=== PATIENT | male | born 1935 | race Caucasian/White ===

== ENCOUNTER 2017-02-12 20:57 | Observation (INO) ==
[2017-02-12] MEDS ORDERED: KETOROLAC 30 MG/ML INJECTION IVP ONE ×2 (21:11→22:55)
[2017-02-12] MEDS ORDERED: NS 1,000 ML IV ONE (21:11)
[2017-02-12] MEDS: SALINE FLUSH 10ml SYRINGE IVF PRN (21:13)
--- NOTE | 2017-02-12 21:14 | Emergency Department Report ---
Fall HPI - General Chief Complaint: Fall Stated Complaint: Fall Time Seen by Provider: 02/12/17 21:07 Source: patient, EMS Mode of arrival: EMS Limitations: no limitations - History of Present Illness HPI Narrative: Patient was walking back to had a building in the dark, thinking that he was on ground when he suddenly fell. Poorly the patient was on a small platform and fell approximately 3 feet hardpacked dirt, landing on his right hip, his right side, and striking his right head/forehead on a metallic drain cover. Patient was having significant right hip pain when he tried to get up, so he notify EMS that he would need assistance. On scene the patient was feeling much better, was assisted to his feet, and when he weight on the right hip, his pain increased dramatically, and the patient had a rapid syncopal episode. Patient has had syncope in the past, both with hypovolemia as well as painful stimuli, but he has been checked out several times by physicians and found no specific pathology for his syncope. Patient declined IV or medications, and came in code green with EMS. Patient had no neck pain or tenderness, no chest or abdominal complaints, no pelvic discomfort on exam, and only mild right sided hip pain on gasket supervisor examined the seen. Review of Systems All systems: reviewed and negative except as stated PFSH Patient Stated Medical History Cataracts Yes Glaucoma Yes Hypertension Yes Diabetes Mellitus Type 2 Yes Hx Kidney Stones Yes Sepsis Yes Hypertension Type 2 diabetes [id number] Syncope Surgical History: Cholecystectomy - Social History Smoking status: Never smoker Substance use type: does not use Alcohol intake frequency: does not drink Physical Exam - Limitations Limitations: no limitations - General General appearance: alert - Normal Exams: Eyes:: Pupils are PERRLA w/ EOMI, No scleral icterus, irritation, or foreign bodies noted ENMT:: No facial trauma, nasal exudates, pharyngeal erythema, or exudates are noted Neck:: Full range of motion, without adenopathy, JVD, bruits or thyromegaly Chest/Respirations:: Clear all stroud, with good airflow, and symmetry bilaterally Cardiovascular:: Regular rate and rhythm, without murmur or gallop, Pulses 2+ all extremities, capillary refill, <2 seconds all extremities Abdomen:: Bowel sounds positive, soft, non-tender, non-distended, no hepatosplenomegaly, masses or bruits noted Lymphatic:: No lymphadenopathy, or lymphedema noted Integumentary:: No rashes, hives, or bruising noted, hair and nails, without abnormality Neurological:: Patient is alert, and oriented, cranial nerves, motor/sensory/ cerebellar, exams w/o gross deficits, to observation Psychiatric:: Patient exhibits, appropriate attention, emotion and affect - Head Head exam: other ( has a small scalp hematoma to the right frontotemporal area, minimal tenderness, no surrounding tenderness.) - Extremities Exam Extremities exam: Present: normal inspection, tenderness (decreased range of motion of the right hip secondary to pain moderate posterior lateral tenderness to the right hip), normal capillary refill, pedal edema. Absent: full ROM, joint swelling, calf tenderness Course Vital Signs Temperature 98.1 F 02/12/17 20:57 Respiratory Rate 20 02/12/17 20:57 Blood Pressure 134/59 02/12/17 20:57 Pulse Oximetry 94 02/12/17 20:57 Temperature 98.1 F 02/12/17 20:57 Pulse Rate 83 02/12/17 22:06 Respiratory Rate 20 02/12/17 22:06 Blood Pressure 156/83 H 02/12/17 22:06 Pulse Oximetry 94 02/12/17 20:57 Fall - MDM Narrative Medical decision making narrative: Patient given Toradol 30 mg IV, 1 L normal saline IV fluid bolus - CT head - normal, small vessel disease only, no fractures or bleeds Right hip/pelvis - normal/negative Disposition Clinical Impression: Multiple contusions Fall Qualifiers: Encounter type: initial encounter Qualified Code(s): W19.XXXA - Unspecified fall, initial encounter Syncope Qualifiers: Syncope type: unspecified Qualified Code(s): R55 - Syncope and collapse Disposition: Discharged Home, Self-Care Condition: Improved Instructions: Fall Prevention for Older Adults (ED) Additional Instructions: Take your routine medications Return to ER or see her primary doctor for any worsening in her condition Referrals: Darwin Radford II, MD [Family Provider] - - Seen By: physician
[2017-02-12] MEDS ORDERED: ORPHENADRINE 60 MG/2 ML INJECTION IV ONE (22:55)
[2017-02-12] MEDS ORDERED: SALINE FLUSH 10ml SYRINGE ONE (23:42)
[2017-02-12] MEDS ORDERED: NS 100 ML ONE (23:42)
[2017-02-12] MEDS ORDERED: IODIXANOL 320mg/ml 100ml INJECTION IV ONE (23:42)
[2017-02-13] MEDS ORDERED: HYDROMORPHONE 2 MG/ML INJECTION IVP ONE (00:42)
[2017-02-13] MEDS ORDERED: ONDANSETRON 4 MG/2 ML INJECTION IVP ONE (00:42)
[2017-02-13] MEDS ORDERED: ONDANSETRON 4 MG/2 ML INJECTION IVP PRN (01:29)
[2017-02-13] MEDS ORDERED: ACETAMINOPHEN 325 MG TABLET PO PRN (01:29)
[2017-02-13] MEDS ORDERED: SENNA + DOCUSATE TABLET PO PRN (01:29)
[2017-02-13] MEDS ORDERED: HYDROCODONE/APAP 5mg/325mg TABLET PO PRN (01:29)
[2017-02-13 01:40] VITALS: BMI 24.0
--- NOTE | 2017-02-13 01:43 | History & Physical Report ---
<Moncho Quinones I - Last Filed: 02/13/17 01:39> History of Present Illness Date: 02/13/17 Chief complaint: Fall, R hip pain HPI: Hema is a pleasant active 81-year-old male who presented to the emergency department per EMS after a fall. 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 He did apparently hit his head on a metal drainage grate. He denied loss of consciousness. is evaluation in the emergency department included an unremarkable CT of the head, and plain films of his hip were normal. He had significant pain with attempts at weightbearing however, in fact he had a vasovagal syncope. CT of the pelvis revealed a right pubic ramus fracture. He also developed hematuria in the emergency department. He is subsequently admitted for further evaluation and comanagement with orthopedic surgery. Review of Systems All systems PM: 10-point ROS was reviewed, no additional remarkable complaints except (Prior to the above described event, he was in his usual state of good health. He complains of some right shoulder pain with movement, the pain in his right hip and pelvis is resolved and occurs only with AROM.) - Constitutional Constitutional: Absent: fever(s), headache(s) [facility] Clinic Medical History Multiple contusions (Acute Medical) Fall (Acute Medical) Syncope (Acute Medical) Diabetes mellitus, well controlled with diet and weekly subcutaneous injection essential hypertension, well controlled Surgical History: Cholecystectomy Family History: his father lived to age 96 his mother from complications of a stroke several maternal uncles had coronary artery disease - Social History Smoking status: Former smoker (quit smoking over 25 years ago, he used to smoke pipes and cigars) Alcohol intake frequency: holidays/special occasions only Housing: house Household members: spouse ( she is wheelchair bound, he is her primary caregiver ) 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) Medications Home Medications Medication Instructions Recorded Confirmed Type Exenatide Microspheres [Bydureon 2 mg SQ 02/12/17 History Pen] Telmisartan [Micardis] 20 mg PO 02/12/17 History Allergies Allergy/AdvReac Type Severity Reaction Status Date / Time No Known Allergies Allergy Verified 02/12/17 22:34 Exam Vital Signs: Temperature 97.4 F 02/12/17 23:35 Pulse Rate 91 02/13/17 01:12 Respiratory Rate 14 02/13/17 01:12 Blood Pressure 137/62 02/13/17 01:12 Pulse Oximetry 97 02/13/17 01:12 - Constitutional Present: no acute distress, well nourished, well developed ( appears younger than stated age) - Routine HEENT Exam Head: Present: normocephalic, atraumatic ENT: Present: mucous membranes moist, dentition normal - Routine Neck Exam Present: supple, full ROM - Routine Respiratory Exam Present: CTA bilaterally. Absent: accessory muscle use, dyspnea, respiratory distress - Routine Cardiovascular Exam Present: RRR, S1, S2, no murmur - Routine Abdominal Exam Present: soft, non distended, non tender - Routine Extremities Exam Absent: cyanosis, clubbing, edema - Routine Skin Exam Present: intact. Absent: jaundice, rash - Routine Neurological Exam Present: alert, oriented X3, CN II-XII intact, normal speech - Routine Psychiatric Exam Present: normal affect, normal thought process, cooperative, good insight, good judgment - Additional findings Additional findings: examination performed using telemedicine equipment with the assistance of the bedside nurse Results - Labs CBC & Chem 7: 02/12/17 23:14 02/12/17 23:14 Assessment and Plan (1) Closed fracture of single pubic ramus of pelvis Current visit: Yes Status: Acute (2) Hypertension Current visit: Yes Status: Acute (3) Fall Current visit: Yes Status: Acute (4) Syncope Current visit: Yes Status: Acute (5) Diabetes mellitus Current visit: Yes Status: Acute Assessment and Plan: Hema is admitted in stable condition. the input and expertise of Dr. Nicholson are appreciated in the morning. Physical and occupational therapies have been ordered. We will give intravenous fluids overnight, and monitor the hematuria. If that does not clear, would have a low threshold for consideration for a urology consultation. We will continue his home antihypertensive regimen, and diabetic diet. When necessary pain and nausea medication ordered. Will provide further symptomatic supportive and diagnostic cares as the current workup, or changes in his clinical scenario, indicate. Plan of care was discussed with the patient at the time of my evaluation and he expressed understanding and desired to proceed. SCDs for DVT prophylaxis at this time, consider Lovenox if acute immobility to be prolonged. DVT Prophylaxis: SCD's Hospital Course Summary Disclaimer: The visit summary below is not to be considered part of the above Progress Note. <Liu Russo - Last Filed: 02/13/17 14:09> History of Present Illness Date: 02/13/17 [facility] Patient Stated Medical History Cataracts Yes: estefani Glaucoma Yes Other HEENT Yes: astigmatism Hypertension Yes Diabetes Mellitus Type 2 Yes Gastroesophageal Reflux Yes: occasionally Disease Hx Kidney Stones Yes Other Musculoskeletal Yes: current pelvic fx Sepsis Yes: gall stones 15 years ago Shingles Yes: mild shingles 30 years ago Clinic Medical History Multiple contusions (Acute Medical) Fall (Acute Medical) Syncope (Acute Medical) Closed fracture of single pubic ramus of pelvis (Acute Medical) Hypertension (Acute Medical) Diabetes mellitus (Acute Medical) Fracture of pubic ramus (Acute Medical) Exam Vital Signs: Temperature 98.1 F 02/13/17 07:41 Pulse Rate 77 02/13/17 07:41 Respiratory Rate 18 02/13/17 07:41 Blood Pressure 120/65 02/13/17 07:41 Pulse Oximetry 94 02/13/17 04:32 Height/Weight/BMI: Height 1.8 m Weight 78.8 kg Body Mass Index 24.0 Results - Labs CBC & Chem 7: 02/13/17 09:49 02/12/17 23:14 Assessment and Plan (1) Fall Current visit: Yes Status: Acute (2) Syncope Current visit: Yes Status: Acute (3) Closed fracture of single pubic ramus of pelvis Current visit: Yes Status: Acute (4) Hypertension Current visit: Yes Status: Acute (5) Diabetes mellitus Current visit: Yes Status: Acute Assessment and Plan: Have independently interviewed and examined pt. Chart reviewed. Above note reviewed and concur. CC: Fall, right hip pain with inability to ambulate; syncope post fall HPI: 81 y/o male presents to ED with above noted complaints. 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 Reports was walking on the grass, when he inadvertently stepped off a retaining well (was dark and not able to see where he was going well). Fell onto his right side very hard-thinks about a 3 foot drop. Was stunned, but does not feel he lost consciousness. Attempted to get up on his own, but had too much pain to stand. Used his cell phone to call EMS. EMS attempted to help him up, but he reports he passed out attempting to stand. Had another syncopal event while in ED. Hematuria noted in ED. Denies problems breathing-no SOA or pain with breathing. No chest pressure, heaviness, or palpitations. Denies nausea. Has been in his typical state of health prior to his injury. PMHx: DM, HTN All: NKDA Meds: see mar Shx: . Quit smoking 25 years ago. 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 Malina PCP. FHx: Father at 96. Mother of stroke ROS: as in HPI. All other negative except to decreased ROM of right shoulder since fall and appetite decreased with bowel slow since starting new DM medication-sugars well controlled with this med. Exam Gen: WDWNWD Interacts appropriately HEENT: NC/AT PERRLA EOMI MMM Neck: midline, supple, no tracheal deviation Lungs: clear bilaterally - no distress on RA CV: RRR without M AB: soft nt/nd +BS EXT: No c/c/e. Pulses intact Psych: awake alert appropriate Neuro: CN II-XII intact. No focal deficits Skin: warm and dry MS: Decreased ROM of R shoulder. Assessment Fall secondary to loss of footing Closed pelvic fracture Hematuria Syncope post fall Decreased ROM of R shoulder Possible rib Fx on right Leukocytosis - suspect stress reaction Elevated LFT Type II DM HTN Plan OBS Ortho consult PT/OT evaluation IVF to help maintain hydration SCD for DVT prevention - avoid Lovenox due to hematuria Continue home medications Monitor sugars Care to return to Dr Radford at time of discharge from [facility]. Resuscitation Status: Full Code Hospital Course Summary Disclaimer: The visit summary below is not to be considered part of the above Progress Note.
[2017-02-13] MEDS: SALINE FLUSH 10ml SYRINGE IVF PRN (01:50)
[2017-02-13] MEDS: NS 1,000 ML IV SCH ×2 (01:50→12:36)
[2017-02-13 04:33] VITALS: O2SAT 94
[2017-02-13 07:48] VITALS: RESP 18
--- NOTE | 2017-02-13 08:01 | CT Scan Report ---
Indication: acute hematuria after a fall PROCEDURE: CT abdomen pelvis w con: Encounter: Initial Comparison: None Technique: Axial CT images were performed through the abdomen and pelvis after the administration of intravenous contrast. Coronal and sagittal two-dimensional reformats. Automated Exposure Control and Iterative Reconstruction dose reducing techniques were utilized. Contrast: Visipaque 320 100 mL Findings: Mild fibrosis in the lung bases. Coronary artery calcifications. The liver is decreased in attenuation relative to the spleen consistent with fatty infiltration. No liver mass or bile duct dilatation. The gallbladder is absent. Colonic interposition anterior to the liver. The spleen, pancreas and adrenal glands are within normal limits. Small bilateral renal cysts. Small nonobstructing left renal stone. Atherosclerotic plaque in the arterial system. No abdominal or pelvic adenopathy. Bladder shows some wall thickening on the right side with a right-sided 1.3 cm diverticulum. There is also a 3 cm area of high attenuation in the posterior aspect of the bladder that could represent acute hemorrhage. Mild stranding surrounding the anterior margin of the bladder in the extraperitoneal space. Small amount of hemorrhage in the extraperitoneal space anterior to the bladder. Trace free pelvic fluid could also represent hemorrhage. No evidence of a bowel obstruction. Bone windows show mildly displaced fracture of the right inferior pubic ramus and a nondisplaced fracture of the right superior pubic ramus near the pubic symphysis. There is also a right sacral alar fracture. Scoliosis and degenerative change in the spine. Impression: 1. Right pubic rami and right sacral fractures. 2. Small amount of hemorrhage within the bladder with inflammation surrounding the anterior aspect of the bladder due to the acute trauma. Small bladder mass cannot be entirely excluded and follow-up exam in three months may be helpful to document resolution. Alternatively cystoscopy could be performed. 3. Trace pelvic hemorrhage. There is a preliminary report by [email or web address]. .
--- NOTE | 2017-02-13 08:03 | CT Scan Report ---
Indication: persistent right hip pain, unable to bear weight PROCEDURE: CT hip RT wo con: Encounter: Initial Comparison: None Technique: Axial CT images were performed through the right hip without intravenous contrast. Coronal and sagittal two-dimensional reformats. Automated Exposure Control and Iterative Reconstruction dose reducing techniques were utilized. Findings: Right sacral ala fracture is nondisplaced. Nondisplaced fracture of the right superior pubic ramus near the pubic symphysis. Mildly displaced fracture of the right inferior pubic ramus. No femoral neck fracture seen. Small amount of hemorrhage in the pelvis and stranding near the bladder. High attenuation region in the posterior bladder could represent a hematoma or less likely soft tissue mass. Right-sided bladder diverticulum. Small amount of inflammation and hemorrhage adjacent to the right sacral fracture. Impression: Right pubic rami and right sacral fractures. There is a preliminary report by [employer]. .
--- NOTE | 2017-02-13 08:06 | XRay Report ---
Indication: fall, hip pain, head injury PROCEDURE: XR pelvis w/ 2 view RT hip: Encounter: Initial Comparison: Pelvic CT from the same time Findings: The right sacral fractures seen by CT is not radiographically visible. The nondisplaced right superior pubic ramus fracture is also essentially not visible radiographically. Right inferior pubic ramus fracture is visualized. No additional acute fracture. No dislocation. Degenerative change in the lower lumbar spine. Impression: Limited visualization of the right sacral and right pubic rami fractures better seen by CT. .
--- NOTE | 2017-02-13 08:07 | CT Scan Report ---
Indication: fall, right fronto/temporal head injury PROCEDURE: CT head/brain wo con: Encounter: Initial Comparison: None Technique: Axial CT images through the head were performed without contrast. Iterative Reconstruction dose reducing technique was utilized. FINDINGS: The ventricles are of normal size, shape, and configuration for the patient's age. There is no evidence of acute intracranial hemorrhage, midline displacement, or mass effect. There are scattered areas of low attenuation in the white matter which most likely represent changes of chronic microvascular ischemia. The CT attenuation of the brain parenchyma is otherwise normal within the cerebellum, brain stem, and cerebral hemispheres. The tympanic cavities and mastoid air cells are free of appreciable disease. There are no definite fractures of the skull base, calvarium, or visualized portion of the midface. Small right frontal scalp hematoma. IMPRESSION: No CT evidence of acute traumatic intracranial injury. There is a preliminary report by [employer]. .
--- NOTE | 2017-02-13 11:07 | Orthopedic Consult Note ---
Orthopedic Consultation HPI - Consultation Info Consult Date: 02/14/17 Attending Physician: Liu Russo MD Consult Reason: fracture - History of Present Illness Hema is a pleasant active 81-year-old male who presented to the emergency department after a fall. 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 He denied loss of consciousness. Xrays in the ER did not show a hip fx but CT of the pelvis revealed a right pubic ramus fracture. He also developed hematuria in the emergency department. He is subsequently admitted for further management of this injury. He denies having any hip pain prior to this fall. He does have some right shoulder pain and reports he had some discomfort in that shoulder prior to the fall when he would reach overhead. No numbness or tingling of the extremities. No other complaints at this time. Review of Systems - Constitutional Constitutional: Absent: chills, fever(s) - EENT Ears, nose, mouth, throat: Absent: headaches - Cardiovascular Cardiovascular: Absent: chest pain, syncope - Respiratory Respiratory: Absent: cough, dyspnea - Gastrointestinal Gastrointestinal: Absent: abdominal pain - Genitourinary Genitourinary General: Present: other (hematuria noted in ER.) - Musculoskeletal Musculoskeletal: Present: as per HPI. Absent: back pain, neck pain - Integumentary/Breasts Integumentary: Absent: wounds - Neurological Neurological: Absent: numbness, radicular pain, tingling [facility] Patient Stated Medical History Cataracts Yes: estefani Glaucoma Yes Other HEENT Yes: astigmatism Hypertension Yes Diabetes Mellitus Type 2 Yes Gastroesophageal Reflux Yes: occasionally Disease Hx Kidney Stones Yes Other Musculoskeletal Yes: current pelvic fx Sepsis Yes: gall stones 15 years ago Shingles Yes: mild shingles 30 years ago Clinic Medical History Multiple contusions (Acute Medical) Fall (Acute Medical) Syncope (Acute Medical) Closed fracture of single pubic ramus of pelvis (Acute Medical) Hypertension (Acute Medical) Diabetes mellitus (Acute Medical) Surgical History: Cholecystectomy - Social History Smoking status: Former smoker (quit smoking over 25 years ago, he used to smoke pipes and cigars) Medications Home Medications Medication Instructions Recorded Confirmed Type Exenatide Microspheres [Bydureon 2 mg SQ 02/12/17 History Pen] Telmisartan [Micardis] 20 mg PO 02/12/17 History Allergies Allergy/AdvReac Type Severity Reaction Status Date / Time No Known Allergies Allergy Verified 02/12/17 22:34 Orthopedic Exam Vital signs: Temperature 98.1 F 02/13/17 07:41 Pulse Rate 77 02/13/17 07:41 Respiratory Rate 18 02/13/17 07:41 Blood Pressure 120/65 02/13/17 07:41 Pulse Oximetry 94 02/13/17 04:32 - Constitutional General Appearance: Present: alert, cooperative, no acute distress, well developed, well nourished - Respiratory Exam Present: non-labored - Cardiovascular Exam Present: pedal pulses intact - Abdominal Exam Absent: tenderness - Extremities Exam Present: pulses intact. Absent: cyanosis, clubbing, edema, calf tenderness - Hip Exam right Hip Exam: Present: alignment normal, painful PROM (Only with AROM. PROM is well tolerated.). Absent: unequal leg length, tender over trochanter, abnormal rotation - Integumentary Exam Present: pink, warm, dry. Absent: rash, lesions - Neurological Exam Present: no deficits - Psychiatric Exam Present: alert, normal affect - Labs Result Diagrams: 02/13/17 09:49 02/12/17 23:14 Abnormal lab results 02/13/17 Range/Units 09:49 WBC 11.1 H (4.5-11.0) T/MM3 RBC 3.88 L (4.50-5.90) M/MM3 Hgb 12.0 L (13.5-17.5) GM/DL Hct 38.2 L (41-53) % Neut % (Auto) 80.9 H (33-66) % Lymph % (Auto) 11.0 L (23-45) % Neut # (Auto) 8.9 H (1.8-7.7) T/MM3 [place] # (Auto) 0.9 H (0-0.8) T/MM3 H & H 02/13/17 Range/Units 09:49 Hgb 12.0 L (13.5-17.5) GM/DL Hct 38.2 L (41-53) % Impression and Recommendation (1) Fracture of pubic ramus Qualifiers: Encounter type: initial encounter Fracture type: closed Laterality: right Qualified Code(s): S32.591A - Other specified fracture of right pubis, initial encounter for closed fracture Status: Acute Pt has a mildly displaced fracture of the right inferior pubic ramus and a nondisplaced fracture of the right superior pubic ramus near the pubic symphysis. There is also a right sacral alar fracture. Will work with ambulation, WBAT. Check inlet and outlet views after ambulation to confirm the fractures are stable. If the xrays are stable, I would follow up in orthopedic clinic in 2 weeks for x -rays. He had some soreness of the right shoulder prior to the fall but has more discomfort this AM. Underlying rotator cuff pathology is a possibility considering his age and recent injury. Consider MRI in the outpatient setting if his symptoms do not resolve. Xrays of the shoulder show elevation of the humeral head consistent with chronic rotator cuff dz. No fracture identified. Hospital Course Summary Disclaimer: The visit summary below is not to be considered part of the above Progress Note.
--- NOTE | 2017-02-13 12:31 | XRay Report ---
Indication: Fall - right ribcage pain PROCEDURE: XR ribs RT min 3V w CXR1V: Encounter: Initial Comparison: None FINDINGS: Chest: Minimal basilar scarring. Lungs are otherwise clear. There is no consolidative pneumonia, pleural effusion or pneumothorax identified. Elevated right hemidiaphragm. The heart size and mediastinum are within normal limits. AP and oblique views of the right ribs: Subtle cortical irregularity along the inferior aspect of the right seventh lateral rib seen on the oblique views. No discrete cortical step-off. IMPRESSION: Possible nondisplaced right seventh lateral rib fracture. No acute cardiopulmonary abnormality. .
--- NOTE | 2017-02-13 12:33 | XRay Report ---
Indication: Fall - right shoulder pain and decreaed ROM PROCEDURE: XR shoulder RT 2-3 views: Encounter: Initial Comparison: None Findings: There is no acute fracture or dislocation identified. Probable chronic rotator cuff tear with superior subluxation of the humeral head. Impression: No acute osseous abnormality. .
--- NOTE | 2017-02-13 12:36 | XRay Report ---
Indication: Pelvis fx. Check stability. Inlet/outlet Views. PROCEDURE: XR pelvis min 3V: Encounter: Initial Comparison: CT and pelvis radiographs from yesterday Findings: Stable alignment of the right superior and inferior pubic ramus fractures. The known right sacral fracture is not well visualized. Contrast material in the bladder. No new fracture. Impression: Stable alignment of the right pubic ramus fractures. .
[2017-02-13 15:13] VITALS: BP 129/63; PULSE 84; TEMP 98.4
--- NOTE | 2017-02-13 18:09 | Discharge Summary ---
<Lo Kruse V - Last Filed: 02/13/17 18:05> Discharge Information Date of admission: 02/13/17 01:11 Anticipated date of discharge: 02/13/17 Attending Physician: Liu Russo MD Primary care physician: Darwin Radford II, MD Consults: 02/13/17 IRU Screening [Inpatient Rehab Screening] [CONS] Routine 02/13/17 01:29 Case Management Consult [CONS] Routine Reason For Exam: Physician Consult [CONS] Routine Consulting Provider: Timothy Nicholson Reason For Exam: Trauma, fall 3' onto concrete, R pubic ramus fx Ordering Provider has Notified Store Coordinator: No Comment: Please notify in AM, thank you - Discharge Diagnosis (1) Fall Status: Acute (2) Syncope Status: Acute (3) Closed fracture of single pubic ramus of pelvis Status: Acute (4) Hypertension Status: Acute (5) Diabetes mellitus Status: Acute - Procedures Procedures: NOne - Laboratory Labs: 02/13/17 09:49 - Microbiology None - Radiology Radiology: 02/12-CT Head- no intracranial abnormality or hemorrhage 02/12-CT of the hip- Impression: Right pubic rami and right sacral fractures. 02/13- CT abdomen pelvis- Impression: 1. Right pubic rami and right sacral fractures. 2. Small amount of hemorrhage within the bladder with inflammation surrounding the anterior aspect of the bladder due to the acute trauma. Small bladder mass cannot be entirely excluded and follow-up exam in three months may be helpful to document resolution. Alternatively cystoscopy could be performed. 3. Trace pelvic hemorrhage. 02/13-pelvic [id number]-iwctyx alignment of right pubic rami fracture 02/13-right shoulder x-ray-no acute osseous abnormality 02/13/chest with right ribs-possible nondisplaced right 7th lateral rib fracture - Pathology None History of Present Illness HPI: Hema is a pleasant active 81-year-old male who presented to the emergency department per EMS after a fall. 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 He did apparently hit his head on a metal drainage grate. He denied loss of consciousness. is evaluation in the emergency department included an unremarkable CT of the head, and plain films of his hip were normal. He had significant pain with attempts at weightbearing however, in fact he had a vasovagal syncope. CT of the pelvis revealed a right pubic ramus fracture. He also developed hematuria in the emergency department. He is subsequently admitted for further evaluation and comanagement with orthopedic surgery. Objective Vital signs: Temperature 98.4 F 02/13/17 15:11 Pulse Rate 84 02/13/17 15:11 Respiratory Rate 18 02/13/17 15:11 Blood Pressure 129/63 02/13/17 15:11 Pulse Oximetry 94 02/13/17 15:11 Height/Weight/BMI: Height 1.8 m Weight 78.8 kg Body Mass Index 24.0 Hospital Course This is a general summary of the patient's hospital course. For more details refer to the complete medical record. Hospital course: 02/13/17 Hema was seen and examined by physical therapy who recommended IRU placement for ongoing rehabilitation and strengthening. He was also found to have a probable right 7th rib fracture, accompanied with injury of the right shoulder. He is screened and accepted to transfer to the IRU unit under the care of Dr. Monge. The hospitalist services will follow him and medically manage his hematuria, diabetes and hypertension. Time spent with patient: 25 - 35 minutes Discharge Plan - Discharge Disposition Disposition: 04 To [facility] Home/Facility *Condition: Stable *Reason For Visit: Right pelvic ramus fx - Discharge Medications *Discharge Medications: New Senna + Docusate [Senna Plus Tablet] 1 tab PO BID PRN tablet PRN Reason: Constipation Milk of Magnesia [Mom] 30 ml PO DAILY PRN udc PRN Reason: Constipation Acetaminophen [Tylenol] 325 - 650 mg PO Q5H PRN tablet PRN Reason: Discomfort Hydrocodone/APAP 5/325 [Langdon 5/325] 1 tab PO Q6H PRN tablet PRN Reason: Pain Continue Telmisartan [Micardis] 20 mg PO Exenatide Microspheres [Bydureon Pen] 2 mg SQ - Discharge Packet/Instructions *Diet: Carb consistent, 2000 calorie diet *Activity: As tolerated *Pain Management/Treatment: Tylenol and Langdon *Wound Care: N/A *Expected Signs/Symptoms: improved function and strength *Notify Physician if: n/a *During Business Hours Contact: n/a *After Business Hours Contact: n/a *Pending Lab/Results: No Pending Lab - Referrals/Follow Up - Patient Handouts Patient Handouts: Pelvic Fracture (GEN) - Dismissal Complete Discharge Instructions are:: Complete <Liu Russo - Last Filed: 02/13/17 18:33> Discharge Information Date of admission: 02/13/17 01:11 Attending Physician: Liu Russo MD Primary care physician: Darwin Radford II, MD Consults: 02/13/17 IRU Screening [Inpatient Rehab Screening] [CONS] Routine 02/13/17 01:29 Case Management Consult [CONS] Routine Reason For Exam: Physician Consult [CONS] Routine Consulting Provider: Timothy Nicholson Reason For Exam: Trauma, fall 3' onto concrete, R pubic ramus fx Ordering Provider has Notified Store Coordinator: No Comment: Please notify in AM, thank you - Discharge Diagnosis (1) Fall Status: Acute (2) Syncope Status: Acute (3) Closed fracture of single pubic ramus of pelvis Status: Acute (4) Hypertension Status: Acute (5) Diabetes mellitus Status: Acute Discharge diagnosis Fall secondary to loss of footing Closed pelvic fracture Associated conditions and complications Hematuria Syncope post fall Decreased ROM of R shoulder - suspect rotator cuff tear Possible rib Fx on right Leukocytosis - suspect stress reaction Elevated LFT Type II DM HTN - Laboratory Labs: 02/13/17 09:49 Objective Vital signs: Temperature 98.4 F 02/13/17 15:11 Pulse Rate 84 02/13/17 15:11 Respiratory Rate 18 02/13/17 15:11 Blood Pressure 129/63 02/13/17 15:11 Pulse Oximetry 94 02/13/17 15:11 Height/Weight/BMI: Height 1.8 m Weight 78.8 kg Body Mass Index 24.0 Hospital Course This is a general summary of the patient's hospital course. For more details refer to the complete medical record. Attestation Narriative - Attestation Attestation Narrative: 02/13/17 18:31 I have independently interviewed and examined pt prior to discharge. See H&P notation from today for details. Medically stable for discharge to IRU.
== END 2017-02-13 16:45 ==
LOC: ED 20:57 → MED 20:57
PROVIDERS: ADMIT Internal Medicine; ATTEND Hospitalist

== ENCOUNTER 2017-02-13 17:00 | Inpatient (IN) ==
[2017-02-13] MEDS ORDERED: SENNA + DOCUSATE TABLET PO PRN (17:21)
--- NOTE | 2017-02-13 17:43 | IRU History & Physical Report ---
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 Liu Russo, hospitalist at [facility]. His primary care physician is Dr. Darwin Radford. 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 On 02/12/2017 he was walking in a poorly lit area at around 8:15 PM. He suddenly stepped off a loading dock falling some 3 feet. He landed on the right upper leg area. He was initially somewhat confused or at least did not know exactly what was going on. He did apparently strike his head but definitely was not unconscious. He recalls the entire event. He was brought to the emergency department where he was noted to have right pubic ramus fracture. In addition there is suggestion of nondisplaced right seventh lateral rib fracture as well as right sacral fracture. He did develop gross hematuria and CT scan confirmed a small amount of hemorrhage within the bladder likely secondary to trauma. It is not possible to exclude a mass based on the CT scan. He lives at home here in [facility]. He lives with his . He does not use an assistive device at home. The patient does have history of diabetes mellitus. He has had this for about 5 years or so. He checks his blood sugars fasting on a daily basis and typically they're running 110. He does not know what his current A1c is. It was just over 7 about 3 or 4 months ago. He was started on Bydureon which he takes once weekly. His will bring that in for him. He does not have hypoglycemic episodes. He feels as though his sugars are much more well controlled with the Bydureon. In addition he has lost weight and has reduced appetite likely secondary to the Bydureon usage. He was independent at home prior to the accident. Current level of functioning is as follows: Eating with supervision level, he is total assist for grooming, lower body dressing and walking. He is moderate assistance for upper body dressing and maximal assistance for toileting, bed/ chair/wheelchair transfers. He is moderate assistance for toilet transfers. He is able to walk although with significant pain with a rolling walker 26 feet. The following medical conditions are noted and require active monitoring and/or management: 1. Uncontrolled pain 2. Hematuria, gross, likely secondary to trauma 3. Diabetes mellitus type 2 on Bydureon, at risk for hyperglycemia or hypoglycemia in view of the pain and likely reduced appetite. The following therapies will be needed: 1. Physical therapy: for transfers and ambulation and stairs. 2. Occupational therapy: for ADL's and transfers. 3. Medical management: for the above conditions. 4. 24 hour Rehabilitation Nursing to monitor and address the following: Close blood sugar monitoring, pain management, evidence of further bleeding in terms of the hematuria [facility] Patient Stated Medical History Cataracts Yes: estefani Glaucoma Yes Other HEENT Yes: astigmatism Hypertension Yes Diabetes Mellitus Type 2 Yes Gastroesophageal Reflux Yes: occasionally Disease Hx Kidney Stones Yes Other Musculoskeletal Yes: current pelvic fx Sepsis Yes: gall stones 15 years ago Shingles Yes: mild shingles 30 years ago Clinic Medical History Multiple contusions (Acute Medical) Fall (Acute Medical) Syncope (Acute Medical) Closed fracture of single pubic ramus of pelvis (Acute Medical) Hypertension (Acute Medical) Diabetes mellitus (Acute Medical) Fracture of pubic ramus (Acute Medical) Surgical History: 1. Cholecystectomy. 2. Tonsillectomy and adenoidectomy. 3. Bilateral cataract procedure Family History: The patient's father of old age although may have had aortic stenosis. Mother of stroke. - Social History Smoking status: Former smoker Substance use type: does not use Alcohol intake: current Alcohol intake frequency: holidays/special occasions only Last drink: days (ago) (14 days ago) Housing: house Household members: spouse Current occupational status: retired Current residence: Apartment/Private Home Social history: Patient patient lives with his here in [place]. 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 Review of Systems - Constitutional Constitutional: Absent: anorexia, chills, fatigue, fever(s), headache(s), lethargy, malaise, night sweats, weakness, weight gain, weight loss - EEMNT Eyes: Absent: blurry vision, change in vision, diplopia Mouth/Throat: Absent: changes in swallowing, painful swallowing, change in taste , bleeding gums, change in voice - Cardiovascular Cardiovascular: Absent: chest pain, palpitations, syncope, dyspnea on exertion, orthopnea, edema, cyanosis, heart murmur Rhythm: Present: regular rhythm Vascular: Absent: intermittent claudication, pedal edema, unilateral swelling - Respiratory Respiratory: Absent: cough, dyspnea, hemoptysis, dyspnea on exertion, wheezing, pain on inspiration, chest congestion, excessive phlegm production - Gastrointestinal Gastrointestinal: Absent: abdominal pain, change in bowel habits, constipation, diarrhea, dyspepsia, dysphagia, early satiety, hematochezia, melena, nausea, vomiting - Musculoskeletal Musculoskeletal: Present: myalgias. Absent: abnormal gait, arthralgias, back pain, joint swelling, limited range of motion, muscle weakness - Integumentary/Breasts Integumentary: Absent: alopecia, erythema, lesions, pruritus, rash, jaundice - Neurological Neurological: Absent: abnormal gait, abnormal movements, abnormal speech, confusion, convulsions, dizziness, focal weakness, frequent falls, headache(s), loss of vision, memory loss, numbness, paresthesias, tremor(s) - Psychiatric Psychiatric: Absent: abnormal sleep pattern, anxiety, depression - Endocrine Endocrine: Absent: cold intolerance, flushing, heat intolerance, palpitations - Hematologic/Lymphatic Hematologic/Lymphatic: Absent: easy bleeding, easy bruising, lymphadenopathy - Allergic/Immunologic Allergic/Immunologic: Absent: urticaria Medications Home Medications Medication Instructions Recorded Confirmed Type Exenatide Microspheres [Bydureon 2 mg SQ 02/12/17 History Pen] Telmisartan [Micardis] 20 mg PO 02/12/17 History Allergies Allergy/AdvReac Type Severity Reaction Status Date / Time No Known Allergies Allergy Verified 02/12/17 22:34 Results IRU - Labs Labs: I reviewed the acute stay data. Exam - Constitutional Present: moderate distress, well nourished, well developed, average body habitus , cooperative - Routine HEENT Exam Head: Present: normocephalic, atraumatic. Absent: cushingoid faces, abrasion, laceration, hematoma Eye: Present: EOMI, PERRL. Absent: conjunctival icterus, scleral injection, periorbital swelling, nystagmus ENT: Present: mucous membranes moist, oropharynx clear - Routine Neck Exam Present: supple, full ROM, trachea midline. Absent: lymphadenopathy, thyromegaly, tenderness, swelling - Routine Chest/Breast/Axilla Exam Chest wall: Absent: tenderness, mass Axillae: Absent: lymphadenopathy, mass - Routine Respiratory Exam Present: CTA bilaterally. Absent: accessory muscle use, decreased breath sounds , prolonged expiratory phase, rales, respiratory distress, rhonchi, stridor, wheezes, crackles, distant breath sounds - Routine Cardiovascular Exam Present: RRR, S1, S2, no murmur. Absent: gallop, S3, S4, click, irregular rhythm - Routine Abdominal Exam Present: soft, normoactive bowel sounds, non distended, non tender. Absent: rebound, guarding, firm, rigid, organomegaly, mass, hernia, wound - Routine Extremities Exam Present: no edema, non tender, pulses intact, normal capillary refill. Absent: cyanosis, clubbing - Routine Back/Spine/Pelvis Exam Back/Spine: Present: full ROM. Absent: scoliosis, kyphosis - Routine Skin Exam Present: intact, dry, warm. Absent: cyanosis, erythema, pallor, mottling, petechiae, urticaria, lesions, jaundice - Routine Neurological Exam Present: alert, oriented X3, CN II-XII intact, sensory deficit, motor deficit, moving all extremities, normal speech - Routine Psychiatric Exam Present: normal affect, normal thought process, cooperative, good insight, good judgment. Absent: depressed, anxious Sepsis Assessment - Evaluation Confirmed Suspected Infection: No SIRS Criteria: none IRU A/P (1) Fracture of pubic ramus Qualifiers: Encounter type: initial encounter Fracture type: closed Laterality: right Qualified Code(s): S32.591A - Other specified fracture of right pubis, initial encounter for closed fracture Current visit: No Status: Acute Patient has evidence of fracture pubic ramus as well as sacral fracture. He has significant pain with any attempted ambulation or transfers. An individualized program of physical therapy and occupational therapy will be initiated to assist him with returning to his previous level of functioning and reduce risk of falls. (2) Hypertension Qualifiers: Hypertension type: essential hypertension Qualified Code(s): I10 - Essential (primary) hypertension Current visit: No Status: Acute He is at risk for hypertension or hypotension in view of the hematuria. He will be monitored carefully. (3) Diabetes mellitus Qualifiers: Diabetes mellitus type: type 2 Diabetes mellitus complication status: without complication Diabetes mellitus group home insulin use: without group home use Qualified Code(s): E11.9 - Type 2 diabetes mellitus without complications Current visit: No Status: Acute He is at risk for hypoglycemia in view of reduced oral intake as well as increased activity regarding mobilization from his fracture. DVT Prophylaxis: SCD's, Lovenox Resuscitation Status: Full Code - Course Hospital Course: Eduardo Monge MD: - Interventions to Obtain Goals PT Treatment Plan: Balance/Proprioception, Functional Activities, Gait Training , Patient/Family Education OT Treatment Plan: ADL (Basic Care) Goals Progress/Modifications: An individualized program of physical therapy and occupational therapy with 24 hour rehabilitation nursing monitoring for his blood sugars and vital signs will be undertaken.
--- NOTE | 2017-02-13 17:50 | IRU 24Hr Post Admit Eval ---
24 Hr Post Admission Physical - Relevant Changes Relevant Changes: No Reviewed: I have reviewed the patient's information and concur with the finding and results of the pre-admission screen. Certification: I certify the patient for rehabilitation. - Patient Condition (1) Fracture of pubic ramus Status: Acute Qualifiers: Encounter type: initial encounter Fracture type: closed Laterality: right Qualified Code(s): S32.591A - Other specified fracture of right pubis, initial encounter for closed fracture Code(s): S32.599A - Other specified fracture of unspecified pubis, initial encounter for closed fracture Classification: Present on IRF Admission, IRF Tx That Should Address Diagnosis, Diagnosis Requiring Medical Follow Up (2) Hypertension Status: Acute Qualifiers: Hypertension type: essential hypertension Qualified Code(s): I10 - Essential (primary) hypertension Code(s): I10 - Essential (primary) hypertension Classification: Present on IRF Admission, IRF Tx That Should Address Diagnosis, Diagnosis Requiring Medical Follow Up (3) Diabetes mellitus Status: Acute Qualifiers: Diabetes mellitus type: type 2 Diabetes mellitus complication status: without complication Diabetes mellitus skilled nursing insulin use: without skilled nursing use Qualified Code(s): E11.9 - Type 2 diabetes mellitus without complications Code(s): E11.9 - Type 2 diabetes mellitus without complications Classification: Present on IRF Admission, IRF Tx That Should Address Diagnosis, Diagnosis Requiring Medical Follow Up - Prior Functional Status Lives With: Spouse Residence Type: Apartment/Private Home Assitive Devices: None Prior Functional Status: Indep. at home or school, Indep. w/ IADL - Current Functional Status Current Level of Function: Current level of functioning is as follows: Eating with supervision level, he is total assist for grooming, lower body dressing and walking. He is moderate assistance for upper body dressing and maximal assistance for toileting, bed/ chair/wheelchair transfers. He is moderate assistance for toilet transfers. He is able to walk although with significant pain with a rolling walker 26 feet. Failed Alternative Therapy: Arrived from Acute Care Patient Requirements: The patient requires oversight by rehabilitation physician to manage their rehabilitation treatment plan and multidisciplinary approach to care that can only be provided in an IRF and requires a multidisciplinary approach to care, provided by professional PTs, OTs, STs, dieticians, RTs, rehabilitation nurses and is not available in lesser levels of care. Limitations Req: Mobility Impairment, Limited Mobility Physical Therapy Minutes: 90 Occupational Therapy Minutes: 90 Therapy: The patient is to receive therapy at least 5 days a week. - Complications/Comorbidities Impact on Functional Outcomes: His severe pain will require close management and may impact his functional outcome. Barriers to Discharge: Weakness, Balance, Endurance, Pain Control - Plan to Avoid Complications Plan to Avoid Complications: The patient cannot receive this care in a lesser intensive setting such as Halfway or Outpatient Therapy due to the patient requiring the following : Patient requires a multidisciplinary approach in view of his multiple fractures as well as his medical problems of hypertension and diabetes. He requires 24 hour rehabilitation nursing monitoring of his blood sugars and vital signs..
[2017-02-13] MEDS ORDERED: BISACODYL 10 MG SUPPOSITORY RECTALLY PRN (18:52)
[2017-02-13] MEDS: CALCIUM 600 + VIT D 400 TABLET PO SCH (20:54)
[2017-02-13] MEDS: CALCITONIN NASAL SPRAY 3.7ml NS SCH (20:55)
[2017-02-13] MEDS: ACETAMINOPHEN 325 MG TABLET PO PRN (21:04)
[2017-02-13 21:12] VITALS: BMI 24.7
[2017-02-14] MEDS: HYDROCODONE/APAP 5mg/325mg TABLET PO PRN (05:57)
[2017-02-14] MEDS: CALCIUM 600 + VIT D 400 TABLET PO SCH ×2 (08:41→20:36)
[2017-02-14] MEDS ORDERED: ENOXAPARIN 40 MG/0.4 ML INJECTION SQ SCH (09:00)
--- NOTE | 2017-02-14 09:18 | Consult Note ---
<MannyRachael Pal - Last Filed: 02/14/17 16:18> Consult Information - Data of Consult Consult date: 02/14/17 (Dr. Kelly Tom) Requesting Physician: Eduardo Monge MD Primary Care Provider: Darwin Radford II, MD Family Provider: Darwin Radfrod II, MD - Consult Narrative Reason for consult: Management of medical co-morbidities, including HTN, DM2, et. al. History of present illness: Mr. 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 He fell onto his right side, and suffered a pubic rami and sacral fracture, nondisplaced. There is concern re: minor pelvic bleeding and he was noted to have some hematuria. Other injuries include a possible right shoulder rotator cuff injury and right rib fracture as well. He was evaluated by ortho- Dr. Nicholson during his inpatient stay. Following stabilization, he was transferred to IRU for further evaluation and treatment, strengthening and increase in function. A medical management consult has been requested from our service. He is doing very well today. Self- administering home injectable medication. Nursing reports that he needs home eye gtts resumed. Pt. reports doing well overall. Does not report any concerns. [facility] Patient Stated Medical History Cataracts Yes: estefani Glaucoma Yes Other HEENT Yes: astigmatism Hypertension Yes Diabetes Mellitus Type 2 Yes Constipation No Gastroesophageal Reflux Yes: occasionally Disease Hx Incontinence No Hx Kidney Stones Yes Other Musculoskeletal Yes: current pelvic fx Sepsis Yes: gall stones 15 years ago Shingles Yes: mild shingles 30 years ago Clinic Medical History Multiple contusions (Acute Medical) Fall (Acute Medical) Syncope (Acute Medical) Closed fracture of single pubic ramus of pelvis (Acute Medical) Hypertension (Acute Medical) Diabetes mellitus (Acute Medical) Fracture of pubic ramus (Acute Medical) Hematuria with bladder injury vs. small mass. Surgical History: 1. Cholecystectomy. 2. Tonsillectomy and adenoidectomy. 3. Bilateral cataract procedure Family History: Father- old age (96) Mother- stroke Uncles- CAD, multiple - Social History Smoking status: Former smoker Substance use type: does not use Housing: house Household members: spouse (Spouse is disabled, he is primary caregiver) Current occupational status: retired Current residence: Apartment/Private Home Review of Systems All systems PM: 10-point ROS was reviewed, no additional remarkable complaints except - Constitutional Constitutional: Present: as per HPI - Cardiovascular Cardiovascular: Absent: edema - Respiratory Respiratory: Absent: dyspnea, chest congestion - Gastrointestinal Gastrointestinal: Absent: abdominal pain - Musculoskeletal Musculoskeletal: Present: abnormal gait, limited range of motion - Neurological Neurological: Present: abnormal gait Medications Home Medications Medication Instructions Recorded Confirmed Type Exenatide Microspheres [Bydureon 2 mg SQ 02/12/17 History Pen] Telmisartan [Micardis] 20 mg PO 02/12/17 History Allergies Allergy/AdvReac Type Severity Reaction Status Date / Time No Known Allergies Allergy Verified 02/12/17 22:34 Exam Vital Signs: Temperature 97.8 F 02/14/17 08:46 Pulse Rate 83 02/14/17 08:46 Respiratory Rate 18 02/14/17 08:46 Blood Pressure 130/66 02/14/17 08:46 Pulse Oximetry 92 02/14/17 08:46 Height/Weight/BMI: Height 1.8 m Weight 80.3 kg Body Mass Index 24.7 - Constitutional Present: no acute distress, well nourished, well developed, cooperative Comments: Well groomed. Appears younger than stated age. - Routine HEENT Exam Head: Present: normocephalic, atraumatic Eye: Present: EOMI, PERRL ENT: Present: mucous membranes moist - Routine Neck Exam Present: supple, full ROM - Routine Respiratory Exam Present: CTA bilaterally. Absent: rales, rhonchi, wheezes, crackles - Routine Cardiovascular Exam Present: RRR, S1, S2, no murmur - Routine Abdominal Exam Present: soft, normoactive bowel sounds, non distended, non tender - Routine Extremities Exam Present: edema (Trace pedal edema. ) - Routine Back/Spine/Pelvis Exam Comments: Pain c/w known pelvic fx. - Routine Skin Exam Present: intact, dry, warm - Routine Neurological Exam Present: alert, oriented X3, CN II-XII intact, moving all extremities - Routine Psychiatric Exam Present: normal affect, normal thought process, cooperative, good judgment Results - Labs CBC & Chem 7: 02/14/17 04:34 02/14/17 04:34 - Imaging and Cardiology CT scan - head Additional comments: IMPRESSION: No CT evidence of acute traumatic intracranial injury. CT scan - pelvis Additional comments: Impression: Right pubic rami and right sacral fractures. Abdominal x-ray Additional comments: Impression: Limited visualization of the right sacral and right pubic rami fractures better seen by CT. Impression: Stable alignment of the right pubic ramus fractures. . CT scan - abdomen Additional comments: Impression: 1. Right pubic rami and right sacral fractures. 2. Small amount of hemorrhage within the bladder with inflammation surrounding the anterior aspect of the bladder due to the acute trauma. Small bladder mass cannot be entirely excluded and follow-up exam in three months may be helpful to document resolution. Alternatively cystoscopy could be performed. 3. Trace pelvic hemorrhage. Chest x-ray Additional comments: Shoulder xray Impression: No acute osseous abnormality. . Ribs: IMPRESSION: Possible nondisplaced right seventh lateral rib fracture. No acute cardiopulmonary abnormality. . Assessment and Plan (1) Fall Current visit: No Status: Acute (2) Fracture of pubic ramus Current visit: No Status: Acute (3) Hematuria Current visit: Yes Status: Acute (4) Closed fracture of single pubic ramus of pelvis Current visit: No Status: Acute (5) Acute blood loss anemia Current visit: Yes Status: Acute (6) Multiple contusions Current visit: No Status: Acute (7) Hypertension Current visit: No Status: Chronic (8) Diabetes mellitus Current visit: No Status: Chronic (9) Gait instability Current visit: Yes Status: Acute Assessment and Plan: Assessment: 02/14/17 Hema is doing well. Continue PT/OT, strengthening per therapy team. Resume home eye drops per pt. request. Pt. reports daily BG checks at home- will decrease to daily. Home Exenatide weekly on Thursday- family providing home medication. Monitor due to ABLA. Suspect hematuria due to acute pelvic trauma. Repeat CBC and UA in AM. May need to repeat pelvic imaging if hematuria does not resolve. Add I.S. due to rib fractures. Continue pain control. Monitor for constipation. Resume home micardis and monitor BP. Chart is reviewed during this visit. Thank you for the consult; we will continue to follow with you. DVT Prophylaxis: SCD's GI Prophylaxis: other (n/a) Resuscitation Status: Full Code Hospital Course Summary Disclaimer: The visit summary below is not to be considered part of the above Progress Note. Hospital Course: 02/14/17 11:22 Hema is doing well. Continue PT/OT, strengthening per therapy team. Resume home eye drops per pt. request. Pt. reports daily BG checks at home- will decrease to daily. Home Exenatide weekly on Thursday- family providing home medication. Monitor due to ABLA. Suspect hematuria due to acute pelvic trauma. Repeat CBC and UA in AM. May need to repeat pelvic imaging if hematuria does not resolve. Add I.S. due to rib fractures. Continue pain control. Monitor for constipation. Resume home micardis and monitor BP. Chart is reviewed during this visit. Thank you for the consult; we will continue to follow with you. <Liu Russo - Last Filed: 02/14/17 16:31> Consult Information - Data of Consult Requesting Physician: Eduardo Monge MD Primary Care Provider: Darwin Radford II, MD Family Provider: Darwin Radford II, MD [facility] Patient Stated Medical History Cataracts Yes: estefani Glaucoma Yes Other HEENT Yes: astigmatism Hypertension Yes Diabetes Mellitus Type 2 Yes Constipation No Gastroesophageal Reflux Yes: occasionally Disease Hx Incontinence No Hx Kidney Stones Yes Other Musculoskeletal Yes: current pelvic fx Sepsis Yes: gall stones 15 years ago Shingles Yes: mild shingles 30 years ago Clinic Medical History Multiple contusions (Acute Medical) Fall (Acute Medical) Syncope (Acute Medical) Closed fracture of single pubic ramus of pelvis (Acute Medical) Hypertension (Chronic Medical) Diabetes mellitus (Chronic Medical) Fracture of pubic ramus (Acute Medical) Hematuria (Acute Medical) Acute blood loss anemia (Acute Medical) Gait instability (Acute Medical) Exam Vital Signs: Temperature 97.8 F 02/14/17 08:46 Pulse Rate 83 02/14/17 08:46 Respiratory Rate 18 02/14/17 14:00 Blood Pressure 130/66 02/14/17 08:46 Pulse Oximetry 92 02/14/17 08:46 Height/Weight/BMI: Height 1.8 m Weight 80.3 kg Body Mass Index 24.7 Results - Labs CBC & Chem 7: 02/14/17 04:34 02/14/17 04:34 Assessment and Plan (1) Closed fracture of single pubic ramus of pelvis Current visit: No Status: Acute (2) Fracture of pubic ramus Current visit: No Status: Acute (3) Fall Current visit: No Status: Acute (4) Multiple contusions Current visit: No Status: Acute (5) Hematuria Current visit: Yes Status: Acute (6) Diabetes mellitus Current visit: No Status: Chronic (7) Hypertension Current visit: No Status: Chronic (8) Acute blood loss anemia Current visit: Yes Status: Acute (9) Gait instability Current visit: Yes Status: Acute Assessment and Plan: Assessment Closed pelvic fracture Fall secondary to loss of footing Syncope post fall Decreased ROM of R shoulder - suspect rotator cuff tear Possible rib Fx on right Hematuria Leukocytosis - resolved. Suspect stress reaction Elevated LFT - Resolved Type II DM HTN Have independently interviewed and examined pt. Chart reviewed. Case discussed with my OPERATIONS ASSOCIATE. Above care plan developed with my supervision; agree with above. Patient admitted to IRU for restorative care of pelvic fracture sustained post fall. Doing okay this afternoon. Worked with therapy-hip area painful. Medications helping pain-feels he is tolerating pain medications well. Breathing well-does not discomfort if takes a large breath. Not having cough, congestion, or SOA. No ab pain or nausea. Not passing blood in his urinary as of this morning. Feels he is urinating well-denies pain or discomfort as he passes urine. Lungs: clear CV: regular AB: soft nt/nd +BS MSE: awake alert appropriate Plan: Agree with admission of patient to IRU to maximize his functional status post pelvic fracture. Lovenox placed on hold due to hematuria. Will need to recheck UA. If hematuria not present, likely could restart Lovenox in near future. SCD for DVT prevention. IS added due to rib fracture. Miacalcin and Calcium with vitamin D added due to rib fracture. Will need to monitor his right shoulder function - ortho recommends MRI in outpatient setting due to concern for possible rotator cuff tear. Continue home medications. Encourage therapy. Recheck CMP this am due to elevated LFT noted on lab from ED - LFT normalized. Medically stable for IRU floor activities. Hospital Course Summary Disclaimer: The visit summary below is not to be considered part of the above Progress Note.
[2017-02-14] MEDS ORDERED: EXENATIDE 2 MG SQ SCH (09:26)
[2017-02-14] MEDS: CALCITONIN NASAL SPRAY 3.7ml NS SCH (10:13)
[2017-02-14] MEDS: ACETAMINOPHEN 325 MG TABLET PO PRN ×2 (10:48→20:36)
[2017-02-14] MEDS: TELMISARTAN 40 MG TABLET PO SCH (12:44)
--- NOTE | 2017-02-14 13:25 | IRU Plan of Care ---
[facility] Overall Plan of Care - Date Date: 02/14/17 - Patient Impairments (1) Fall Qualifiers: Encounter type: initial encounter Qualified Code(s): W19.XXXA - Unspecified fall, initial encounter Code(s): W19.XXXA - Unspecified fall, initial encounter Status: Acute Classification: Present on IRF Admission, IRF Tx That Should Address Diagnosis, Diagnosis Requiring Medical Follow Up (2) Fracture of pubic ramus Qualifiers: Encounter type: initial encounter Fracture type: closed Laterality: right Qualified Code(s): S32.591A - Other specified fracture of right pubis, initial encounter for closed fracture Code(s): S32.599A - Other specified fracture of unspecified pubis, initial encounter for closed fracture Status: Acute Classification: Present on IRF Admission, IRF Tx That Should Address Diagnosis, Diagnosis Requiring Medical Follow Up (3) Hematuria Qualifiers: Hematuria type: gross Qualified Code(s): R31.0 - Gross hematuria Code(s): R31.9 - Hematuria, unspecified Status: Acute Classification: Present on IRF Admission, Diagnosis Requiring Medical Follow Up (4) Closed fracture of single pubic ramus of pelvis Qualifiers: Encounter type: initial encounter Laterality: right Qualified Code(s): S32.591A - Other specified fracture of right pubis, initial encounter for closed fracture Code(s): S32.509A - Unspecified fracture of unspecified pubis, initial encounter for closed fracture Status: Acute Classification: Present on IRF Admission, IRF Tx That Should Address Diagnosis, Diagnosis Requiring Medical Follow Up (5) Acute blood loss anemia Code(s): D62 - Acute posthemorrhagic anemia Status: Acute Classification: Present on IRF Admission, IRF Tx That Should Address Diagnosis, Diagnosis Requiring Medical Follow Up (6) Multiple contusions Code(s): T14.8 - Other injury of unspecified body region Status: Acute Classification: Present on IRF Admission, Diagnosis Requiring Medical Follow Up (7) Hypertension Qualifiers: Hypertension type: essential hypertension Qualified Code(s): I10 - Essential (primary) hypertension Code(s): I10 - Essential (primary) hypertension Status: Chronic Classification: Present on IRF Admission, IRF Tx That Should Address Diagnosis, Diagnosis Requiring Medical Follow Up (8) Diabetes mellitus Qualifiers: Diabetes mellitus type: type 2 Diabetes mellitus complication status: without complication Diabetes mellitus intermediate insulin use: without intermediate use Qualified Code(s): E11.9 - Type 2 diabetes mellitus without complications Code(s): E11.9 - Type 2 diabetes mellitus without complications Status: Chronic Classification: Present on IRF Admission, IRF Tx That Should Address Diagnosis, Diagnosis Requiring Medical Follow Up (9) Gait instability Code(s): R26.81 - Unsteadiness on feet Status: Acute Classification: Present on IRF Admission, IRF Tx That Should Address Diagnosis, Diagnosis Requiring Medical Follow Up - Relevant Changes Relevant Changes: No Reviewed: I have reviewed the patient's information and concur with the finding and results of the pre-admission screen. Certification: I certify the patient for rehabilitation. - Medical Prognosis Medical Prognosis: Good Vital Signs: Last Vital Signs Temp 97.8 F 02/14/17 08:46 Pulse 83 02/14/17 08:46 Resp 18 02/14/17 08:46 BP 130/66 02/14/17 08:46 Pulse Ox 92 02/14/17 08:46 - Anticipated Interventions Anticipated Interventions: The patient requires inpatient IRF care for PT, OT, and/or ST for residuals remaining from multiple fractures (right pubic ramus, sacrum, rib) resulting in muscular weakness and strength deficits. ROM Deficit: Right Upper Extremity Strength Deficits: Right Lower Extremity - Current Functional Status Failed Alternative Therapy: Arrived from Acute Care Patient Requires: The patient requires oversight by rehabilitation physician to manage their rehabilitation treatment plan and multidisciplinary approach to care that can only be provided in an IRF and requires a multidisciplinary approach to care, provided by professional PTs, OTs, rehabilitation nurses, and may require STs, dieticians, and RTS. This is not available in lesser levels of care. Physical Therapy Minutes: 90 Occupational Therapy Minutes: 90 Therapy: The patient is to receive therapy at least 5 days a week. - Anticipated LOS/Outcomes Anticipated Functional Outcome: It is anticipated the patient will be able to return to her previous level of ADL functioning at a modified independent or independent level, including ambulatory ability. Anticipated Length of Stay (days): 7 Anticipated DC Destination: Home, Self Jail Safety Plan: The patient will be provided with the development of a Home Safety Plan for return to a home or home-like environment and and to ensure safety post discharge. - Plan to Avoid Complications Barriers to Attaining Goals: Weakness, Balance, Endurance, Pain Control Plan to Avoid Complications: The patient cannot receive this care in a lesser intensive setting such as [facility] or Outpatient Therapy due to the patient requiring the following : close monitoring of recurrence of gross hematuria as well as close monitoring of the patient's hemoglobin to ensure no further evidence of acute blood loss which may result in hypotension and lightheadedness and increased risk of falling, a multidisciplinary approach to allow him to return to a modified independent to independent level of functioning and decrease risk for readmission.
[2017-02-14] MEDS ORDERED: PNEUMOCOCCAL 13 VACCINE 0.5ml INJECTION IM ONE (15:16)
[2017-02-14] MEDS ORDERED: PNEUMOCOCCAL VAC ADMIN CHARGE INJ ONE (18:00)
[2017-02-14] MEDS: LATANOPROST 0.005% EACH EYE SCH (20:36)
[2017-02-14] MEDS: EYE EACH EYE SCH (20:36)
[2017-02-15] MEDS: HYDROCODONE/APAP 5mg/325mg TABLET PO PRN (07:55)
[2017-02-15] MEDS: CALCIUM 600 + VIT D 400 TABLET PO SCH ×2 (09:13→21:08)
[2017-02-15] MEDS: CALCITONIN NASAL SPRAY 3.7ml NS SCH (09:13)
[2017-02-15] MEDS: TELMISARTAN 40 MG TABLET PO SCH (09:13)
[2017-02-15] MEDS: ACETAMINOPHEN 325 MG TABLET PO PRN ×2 (18:12→23:01)
[2017-02-15] MEDS: LATANOPROST 0.005% EACH EYE SCH (21:10)
[2017-02-15] MEDS: EYE EACH EYE SCH (21:10)
[2017-02-16] MEDS: HYDROCODONE/APAP 5mg/325mg TABLET PO PRN ×2 (06:31→12:32)
[2017-02-16] MEDS: TELMISARTAN 80 MG TABLET PO SCH (08:24)
[2017-02-16] MEDS: CALCIUM 600 + VIT D 400 TABLET PO SCH ×2 (08:24→20:17)
[2017-02-16] MEDS: CALCITONIN NASAL SPRAY 3.7ml NS SCH (08:24)
--- NOTE | 2017-02-16 10:59 | IRU Progress Note ---
- Subjective/Serverity of Illness Dr. Gan states that he is getting stronger and is having less pain. However he continues to have discomfort particularly in the right hip area. He is progressing with therapy. He states that he is constipated. Does complain of right rib pain as well. Over the weekend, OT noted that his oxygen saturations were were transiently dropping into the high 80s. This was with activity. They rapidly came back up. He does have the right rib pain but that is felt to be secondary to the nondisplaced rib fracture. He states that he has a long history of shortness of breath with activity and this is not particularly new. He is on Lovenox with regard to DVT/PE prevention. He has not had further evidence of gross hematuria. The urinalysis does reveal 3 + blood on dipstick. He has not seen any blood in his urine however. He is on Lovenox as noted above. His blood sugars are reviewed and are running in the 120-130 range. Exam Vital Signs: Temperature 97.6 F 02/16/17 08:56 Pulse Rate 87 02/16/17 08:56 Respiratory Rate 20 02/16/17 08:56 Blood Pressure 117/67 02/16/17 08:56 Pulse Oximetry 96 02/16/17 08:56 Height/Weight/BMI: Height 1.8 m Weight 80.3 kg Body Mass Index 24.7 Comments: The patient is awake, alert and oriented and in no acute distress. Pupils are equal. The neck is supple. Chest: Clear to auscultation bilaterally. Cor: RR with no gallop, click nor murmur Abd: soft with normo-active bowel sounds. There are no masses, no tenderness and no guarding. Extremities: No edema is noted. I observed him during therapy. He does get short of breath with a much any activity but he states this is chronic for him. His saturations remained above 90% on room air during this time. Results IRU - Labs Labs: I reviewed his blood pressures and blood sugars and other notes as well. IRU A/P (1) Fall Qualifiers: Encounter type: initial encounter Qualified Code(s): W19.XXXA - Unspecified fall, initial encounter Current visit: No Status: Acute (2) Fracture of pubic ramus Qualifiers: Encounter type: initial encounter Fracture type: closed Laterality: right Qualified Code(s): S32.591A - Other specified fracture of right pubis, initial encounter for closed fracture Current visit: No Status: Acute He continues to demonstrate pain with regard to the fracture of the pubic ramus. (3) Hematuria Qualifiers: Hematuria type: gross Qualified Code(s): R31.0 - Gross hematuria Current visit: Yes Status: Acute Denies any further evidence of gross hematuria although there was some on microscopic. (4) Closed fracture of single pubic ramus of pelvis Qualifiers: Encounter type: initial encounter Laterality: right Qualified Code(s): S32.591A - Other specified fracture of right pubis, initial encounter for closed fracture Current visit: No Status: Acute (5) Acute blood loss anemia Current visit: Yes Status: Acute Hemoglobin is reviewed and is stable at around 10 g percent. (6) Multiple contusions Current visit: No Status: Acute (7) Hypertension Qualifiers: Hypertension type: essential hypertension Qualified Code(s): I10 - Essential (primary) hypertension Current visit: No Status: Chronic (8) Diabetes mellitus Qualifiers: Diabetes mellitus type: type 2 Diabetes mellitus complication status: without complication Diabetes mellitus intermediate frame tender insulin use: without prison use Qualified Code(s): E11.9 - Type 2 diabetes mellitus without complications Current visit: No Status: Chronic His blood sugars are well controlled at the present time. He is on Bydureon. (9) Gait instability Current visit: Yes Status: Acute (10) Constipation by delayed colonic transit Current visit: Yes Status: Acute He reports no bowel movement since his fall. He says it is difficult to Valsalva due to the rib pain. We will add on MiraLAX on a daily basis. DVT Prophylaxis: SCD's Resuscitation Status: Full Code - Course Hospital Course: Eduardo Monge MD: 02/16/17 11:06 No further gross hematuria is noted. Vital signs reveal some elevated blood pressure likely related to his pain. He does have some dyspnea with activity with transient drop in saturations. He is on Lovenox for DVT/PE prevention. He states his dyspnea is chronic. He is constipated and we will add on MiraLAX. - Interventions to Obtain Goals PT Treatment Plan: Functional Activities, Gait Training, Therapeutic Exercise OT Treatment Plan: ADL (Basic Care), Balance Training, IADL, Pt./Family Education, Ther. Exercise for ADL Goals Progress/Modifications: Time spent with patient and on floor reviewing data and documentin min Barriers to dismissal: Pain, balance, constipation, rib pain Medical decision-making: I believe his blood pressure elevation is likely related to pain that he is experiencing. He does report dyspnea with activity which he states is chronic. Uncertain if this is simple he deconditioning or another etiology. I think the likelihood of pulmonary embolus is low in view of the fact that he has been on Lovenox. However it is not ruled out. Doing a d- dimer would not be of great benefit because it is likely to be elevated due to the trauma and bleeding. He has not had further gross hematuria. He has not had any hypotension. We will add on MiraLAX for his constipation. Certainly if the hypoxemic episodes seem to continue we will need to rethink the possibility of pulmonary embolus but right now I am not certain there is enough evidence for this.
[2017-02-16] MEDS: POLYETHYL GLYCOL 3350 17gm PACKET PO SCH (15:35)
[2017-02-16] MEDS: EYE EACH EYE SCH (20:17)
[2017-02-16] MEDS: LATANOPROST 0.005% EACH EYE SCH (20:17)
[2017-02-16] MEDS: ACETAMINOPHEN 325 MG TABLET PO PRN (23:09)
[2017-02-17] MEDS: HYDROCODONE/APAP 5mg/325mg TABLET PO PRN ×4 (06:08→20:44)
[2017-02-17] MEDS: CALCITONIN NASAL SPRAY 3.7ml NS SCH (08:51)
[2017-02-17] MEDS: POLYETHYL GLYCOL 3350 17gm PACKET PO SCH (08:53)
[2017-02-17] MEDS: TELMISARTAN 80 MG TABLET PO SCH (08:53)
[2017-02-17] MEDS: CALCIUM 600 + VIT D 400 TABLET PO SCH ×2 (08:53→20:45)
[2017-02-17] MEDS: ACETAMINOPHEN 325 MG TABLET PO PRN (10:21)
--- NOTE | 2017-02-17 10:49 | IRU Progress Note ---
- Subjective/Serverity of Illness Dr. Gan is tolerating therapy well. He has quite a bit of discomfort in the right groin and hip when he walks. This is no doubt due to the pelvic fracture. Has discomfort with sitting. We will try a cushion when he is sitting as well. In addition, an icepack be attempted. Blood sugars are reviewed and look good. He denies any nausea or vomiting. He did have a bowel movement this morning and overall he feels as though he is getting stronger. He continues to get dyspneic with activity but he states this is no different than he is at home. Exam Vital Signs: Temperature 97 F 02/17/17 07:45 Pulse Rate 68 02/17/17 07:45 Respiratory Rate 16 02/17/17 07:45 Blood Pressure 144/70 H 02/17/17 07:45 Pulse Oximetry 93 02/17/17 07:45 Height/Weight/BMI: Height 1.8 m Weight 79 kg Body Mass Index 24.7 Comments: The patient is awake, alert and oriented and in no acute distress. Pupils are equal. The neck is supple. Chest: Clear to auscultation bilaterally. Cor: RR with no gallop, click nor murmur Abd: soft with normo-active bowel sounds. There are no masses, no tenderness and no guarding. Extremities: No edema is noted. IRU A/P (1) Fall Qualifiers: Encounter type: initial encounter Qualified Code(s): W19.XXXA - Unspecified fall, initial encounter Current visit: No Status: Acute He is improving with therapy. He is getting stronger never to ambulate better. Continues to have discomfort in the right hip/groin/pelvic area. (2) Fracture of pubic ramus Qualifiers: Encounter type: initial encounter Fracture type: closed Laterality: right Qualified Code(s): S32.591A - Other specified fracture of right pubis, initial encounter for closed fracture Current visit: No Status: Acute He does have discomfort in the expected area with the fracture of the right pubic ramus. (3) Hematuria Qualifiers: Hematuria type: gross Qualified Code(s): R31.0 - Gross hematuria Current visit: Yes Status: Acute He denies any gross hematuria. (4) Closed fracture of single pubic ramus of pelvis Qualifiers: Encounter type: initial encounter Laterality: right Qualified Code(s): S32.591A - Other specified fracture of right pubis, initial encounter for closed fracture Current visit: No Status: Acute (5) Acute blood loss anemia Current visit: Yes Status: Acute (6) Multiple contusions Current visit: No Status: Acute (7) Hypertension Qualifiers: Hypertension type: essential hypertension Qualified Code(s): I10 - Essential (primary) hypertension Current visit: No Status: Chronic (8) Diabetes mellitus Qualifiers: Diabetes mellitus type: type 2 Diabetes mellitus complication status: without complication Diabetes mellitus nurse's aides teacher insulin use: without nurse's aides teacher use Qualified Code(s): E11.9 - Type 2 diabetes mellitus without complications Current visit: No Status: Chronic (9) Gait instability Current visit: Yes Status: Acute (10) Constipation by delayed colonic transit Current visit: Yes Status: Resolved He did have a bowel movement. DVT Prophylaxis: SCD's Resuscitation Status: Full Code - Course Hospital Course: Eduardo Monge MD: 02/16/17 11:06 No further gross hematuria is noted. Vital signs reveal some elevated blood pressure likely related to his pain. He does have some dyspnea with activity with transient drop in saturations. He is on Lovenox for DVT/PE prevention. He states his dyspnea is chronic. He is constipated and we will add on MiraLAX. 02/17/17 10:48 He denies any further gross hematuria. He is improving with therapy. Remains on Lovenox. No change in his dyspnea. He had a bowel movement today. - Interventions to Obtain Goals PT Treatment Plan: Functional Activities, Gait Training, Therapeutic Exercise OT Treatment Plan: ADL (Basic Care), Balance Training, IADL, Pt./Family Education, Ther. Exercise for ADL
[2017-02-17] MEDS: LATANOPROST 0.005% EACH EYE SCH (20:45)
[2017-02-17] MEDS: EYE EACH EYE SCH (20:45)
[2017-02-18] MEDS: HYDROCODONE/APAP 5mg/325mg TABLET PO PRN ×5 (01:03→20:33)
[2017-02-18] MEDS: TELMISARTAN 80 MG TABLET PO SCH (08:53)
[2017-02-18] MEDS: CALCIUM 600 + VIT D 400 TABLET PO SCH ×2 (08:54→20:34)
[2017-02-18] MEDS: CALCITONIN NASAL SPRAY 3.7ml NS SCH (08:54)
[2017-02-18] MEDS: POLYETHYL GLYCOL 3350 17gm PACKET PO SCH (10:00)
[2017-02-18] MEDS ORDERED: DiphenhydrAMINE 25 MG CAPSULE PO PRN (10:25)
--- NOTE | 2017-02-18 10:30 | IRU Progress Note ---
- Subjective/Serverity of Illness Dr. Gan complains of increased pain today in the right pelvic area and right groin. Has discomfort with ambulation. He has not reinjured himself in terms of any falls etc. He is progressing with therapy and is cooperative. Unfortunately, he spent a difficult night. Reports that he cannot sleep well secondary to pruritus on his back. We reviewed his medications carefully and do not find any new medications that he has started. Has a significant rash on his back which is described as a papular red rash without vesicles. This is limited to his back. It is consistent with a drug eruption although could be secondary to contact dermatitis or even "heat rash." He states that he can take Benadryl without difficulty with his urination and states that he has used topical cortisone in the past. Has had no further episodes of gross hematuria. Remains on prophylactic doses of Lovenox. His breathing is about the same. He denies any chest pain. His appetite is reasonably good. His blood sugars are reviewed and appear to be stable at this time. Exam Vital Signs: Temperature 98.4 F 02/18/17 08:00 Pulse Rate 90 02/18/17 08:00 Respiratory Rate 24 02/18/17 08:00 Blood Pressure 130/69 02/18/17 08:00 Pulse Oximetry 94 02/17/17 23:46 Height/Weight/BMI: Height 1.8 m Weight 79 kg Body Mass Index 24.7 Comments: The patient is awake, alert and oriented and in no acute distress. Pupils are equal. The neck is supple. Chest: Clear to auscultation bilaterally. Cor: RR with no gallop, click nor murmur Abd: soft with normo-active bowel sounds. There are no masses, no tenderness and no guarding. Extremities: No edema is noted. Skin: Has a rash encompassing pretty much his entire back. This is a papular reddish rash without vesicles. Some areas are becoming confluent. Appears to be consistent with a drug eruption although it is limited to his back and not seen on anterior chest, abdomen or extremities. IRU A/P (1) Fall Qualifiers: Encounter type: initial encounter Qualified Code(s): W19.XXXA - Unspecified fall, initial encounter Current visit: No Status: Acute (2) Fracture of pubic ramus Qualifiers: Encounter type: initial encounter Fracture type: closed Laterality: right Qualified Code(s): S32.591A - Other specified fracture of right pubis, initial encounter for closed fracture Current visit: No Status: Acute He has increased pain involving the right groin area and right leg. Nevertheless he is cooperative with therapy and making progress. (3) Hematuria Qualifiers: Hematuria type: gross Qualified Code(s): R31.0 - Gross hematuria Current visit: Yes Status: Acute Had microscopic hematuria on urinalysis but no further gross hematuria. Tolerating Lovenox well. (4) Closed fracture of single pubic ramus of pelvis Qualifiers: Encounter type: initial encounter Laterality: right Qualified Code(s): S32.591A - Other specified fracture of right pubis, initial encounter for closed fracture Current visit: No Status: Acute (5) Acute blood loss anemia Current visit: Yes Status: Acute (6) Multiple contusions Current visit: No Status: Acute (7) Hypertension Qualifiers: Hypertension type: essential hypertension Qualified Code(s): I10 - Essential (primary) hypertension Current visit: No Status: Chronic (8) Diabetes mellitus Qualifiers: Diabetes mellitus type: type 2 Diabetes mellitus complication status: without complication Diabetes mellitus jail insulin use: without intermodal dispatcher use Qualified Code(s): E11.9 - Type 2 diabetes mellitus without complications Current visit: No Status: Chronic His blood sugars are doing well on the once weekly by durian injection as well as his consistent carbohydrate diet. (9) Gait instability Current visit: Yes Status: Acute (10) Constipation by delayed colonic transit Current visit: Yes Status: Resolved (11) Papular eruption Current visit: Yes Status: Acute Please see above description. We will add on Benadryl as needed orally as well as topical hydrocortisone. DVT Prophylaxis: SCD's Resuscitation Status: Full Code - Course Hospital Course: Eduardo Monge MD: 02/16/17 11:06 No further gross hematuria is noted. Vital signs reveal some elevated blood pressure likely related to his pain. He does have some dyspnea with activity with transient drop in saturations. He is on Lovenox for DVT/PE prevention. He states his dyspnea is chronic. He is constipated and we will add on MiraLAX. 02/17/17 10:48 He denies any further gross hematuria. He is improving with therapy. Remains on Lovenox. No change in his dyspnea. He had a bowel movement today. 02/18/17 10:31 Has a new rash involving his back. Careful review of medications indicates no new medications. We'll add on Benadryl and topical hydrocortisone. Blood sugars and blood pressures appear to be stable. Has increased pain in right groin but is progressing with therapy. - Interventions to Obtain Goals PT Treatment Plan: Functional Activities, Gait Training, Therapeutic Exercise OT Treatment Plan: ADL (Basic Care), Balance Training, IADL, Pt./Family Education, Ther. Exercise for ADL Goals Progress/Modifications: Time spent with patient and on floor reviewing data and documentin min Barriers to dismissal: rash, pain, endurance Medical decision-making: Careful review of all of his medications was undertaken. He is on no new medications. The rash on his back is consistent with a drug eruption but is limited to his back which implies this is more of a contact issue. Could be related to "heat rash." We'll add on Benadryl orally and topical hydrocortisone. Otherwise he is improving. He does have increased pain in the right groin but is able to ambulate with assistance. Appetite is good.
--- NOTE | 2017-02-18 12:17 | Progress Note ---
- Date 02/18/17 Subjective: Pt seen lying in bed. He reports he is doing well. He developed itching overnight on his back and noted a rash this am. The rash is only on the back. No other sxs. No CP, SOA, abd pain or other complaints other than his R hip/ pelvic pain. He would be interested in trying some steroid cream and maybe Benadryl at bedtime if he is really itching. Objective Vital signs: Temperature 98.4 F 02/18/17 08:00 Pulse Rate 90 02/18/17 08:00 Respiratory Rate 24 02/18/17 08:00 Blood Pressure 130/69 02/18/17 08:00 Pulse Oximetry 94 02/17/17 23:46 Height/Weight/BMI: Height 1.8 m Weight 79 kg Body Mass Index 24.7 - Constitutional Present: no acute distress, well nourished, well developed - Routine HEENT Exam Head: Present: normocephalic, atraumatic - Routine Respiratory Exam Present: CTA bilaterally. Absent: wheezes - Routine Cardiovascular Exam Present: RRR. Absent: murmur - Routine Abdominal Exam Present: soft, normoactive bowel sounds, non distended. Absent: tenderness - Routine Extremities Exam Present: no edema, normal capillary refill - Routine Skin Exam Present: dry, warm, rash (diffuse pink, papular rash over entire back) - Routine Neurological Exam Present: alert, oriented X3 - Routine Lymphatic Exam Lymphatic: Absent: adenopathy - Routine Psychiatric Exam Present: normal affect, cooperative Results - Labs CBC & Chem 7: 02/15/17 04:33 02/14/17 04:34 Assessment and Plan (1) Multiple contusions Current visit: No Status: Acute (2) Fall Current visit: No Status: Acute (3) Closed fracture of single pubic ramus of pelvis Current visit: No Status: Acute (4) Hypertension Current visit: No Status: Chronic (5) Diabetes mellitus Current visit: No Status: Chronic (6) Fracture of pubic ramus Current visit: No Status: Acute (7) Hematuria Current visit: Yes Status: Acute (8) Acute blood loss anemia Current visit: Yes Status: Acute (9) Gait instability Current visit: Yes Status: Acute Assessment and Plan: Assessment Closed pelvic fracture Rash - on back. Possible heat rash. Doubt med reaction or contact/allergic dermatitis. Fall secondary to loss of footing Syncope post fall Decreased ROM of R shoulder - suspect rotator cuff tear Possible rib Fx on right Hematuria Leukocytosis - resolved. Suspect stress reaction Elevated LFT - Resolved Type II DM HTN Plan: Triamcinolone cream TID PRN for rash and Benadryl prn at hs for itching. CBC in am to f-u ABLA. BS's and BP's are good. Overall doing well. Hospital Course Summary Disclaimer: The visit summary below is not to be considered part of the above Progress Note. Hospital Course: 02/14/17 11:22 Hema is doing well. Continue PT/OT, strengthening per therapy team. Resume home eye drops per pt. request. Pt. reports daily BG checks at home- will decrease to daily. Home Exenatide weekly on Thursday- family providing home medication. Monitor due to ABLA. Suspect hematuria due to acute pelvic trauma. Repeat CBC and UA in AM. May need to repeat pelvic imaging if hematuria does not resolve. Add I.S. due to rib fractures. Continue pain control. Monitor for constipation. Resume home micardis and monitor BP. Chart is reviewed during this visit. Thank you for the consult; we will continue to follow with you.
[2017-02-18] MEDS: TRIAMCINOLONE 0.1% CREAM 15 G TUBE TOP PRN ×2 (18:32→22:46)
[2017-02-18] MEDS: LATANOPROST 0.005% EACH EYE SCH (20:34)
[2017-02-18] MEDS: EYE EACH EYE SCH (20:34)
[2017-02-18] MEDS ORDERED: HYDROCORTISONE 2.5% LOTION 59ml TOP SCH (21:00)
[2017-02-18] MEDS: DiphenhydrAMINE 25 MG CAPSULE PO PRN (22:45)
[2017-02-19] MEDS: HYDROCODONE/APAP 5mg/325mg TABLET PO PRN ×4 (06:14→21:48)
[2017-02-19] MEDS ORDERED: AQUAPHOR TOPICAL OINTMENT 52.5 G TUBE TP PRN (08:25)
--- NOTE | 2017-02-19 08:29 | Progress Note ---
- Date 02/19/17 Subjective: Pt seen at the breakfast table. Rash is spreading onto buttocks and abdomen, but triamcinolone cream seems to help. Slept better last night with the Benadryl. He reports he had worn a new set of clothes that hadn't been washed before the rash started, so suspect this could be a contact dermatitis. Otherwise, he has no concerns. Objective Vital signs: Temperature 98.0 F 02/19/17 07:33 Pulse Rate 71 02/19/17 07:33 Respiratory Rate 18 02/19/17 07:33 Blood Pressure 119/65 02/19/17 07:33 Pulse Oximetry 98 02/19/17 07:33 Height/Weight/BMI: Height 1.8 m Weight 79 kg Body Mass Index 24.7 - Constitutional Present: no acute distress, well nourished, well developed - Routine Respiratory Exam Present: CTA bilaterally. Absent: wheezes - Routine Cardiovascular Exam Present: RRR. Absent: murmur - Routine Abdominal Exam Absent: tenderness - Routine Extremities Exam Present: no edema, normal capillary refill - Routine Skin Exam Present: dry, warm, rash (diffuse, pink papular rash over entire back and shoulders and reportedly on abdomen and buttocks (These areas not examined given he is at the dining table.)) - Routine Neurological Exam Present: alert, oriented X3 - Routine Lymphatic Exam Lymphatic: Absent: adenopathy - Routine Psychiatric Exam Present: normal affect, cooperative Results - Labs CBC & Chem 7: 02/19/17 04:25 02/14/17 04:34 Assessment and Plan (1) Multiple contusions Current visit: No Status: Acute (2) Fall Current visit: No Status: Acute (3) Closed fracture of single pubic ramus of pelvis Current visit: No Status: Acute (4) Hypertension Current visit: No Status: Chronic (5) Diabetes mellitus Current visit: No Status: Chronic (6) Fracture of pubic ramus Current visit: No Status: Acute (7) Hematuria Current visit: Yes Status: Acute (8) Acute blood loss anemia Current visit: Yes Status: Acute (9) Gait instability Current visit: Yes Status: Acute Assessment and Plan: Assessment Closed pelvic fracture Rash - suspect contact dermatitis from new clothing he had worn. Fall secondary to loss of footing Syncope post fall Decreased ROM of R shoulder - suspect rotator cuff tear Possible rib Fx on right Hematuria Leukocytosis - resolved. Suspect stress reaction Elevated LFT - Resolved Type II DM HTN Plan: Prednisone 30mg qd with food. BS's may run higher while on steroid. DC topical steroid and use Aquaphor. Add cetirizine qd for itch. OK to continue Benadryl prn. Following hemoglobin - it is improving. Overall doing well. Hospital Course Summary Disclaimer: The visit summary below is not to be considered part of the above Progress Note. Hospital Course: 02/14/17 11:22 Hema is doing well. Continue PT/OT, strengthening per therapy team. Resume home eye drops per pt. request. Pt. reports daily BG checks at home- will decrease to daily. Home Exenatide weekly on Thursday- family providing home medication. Monitor due to ABLA. Suspect hematuria due to acute pelvic trauma. Repeat CBC and UA in AM. May need to repeat pelvic imaging if hematuria does not resolve. Add I.S. due to rib fractures. Continue pain control. Monitor for constipation. Resume home micardis and monitor BP. Chart is reviewed during this visit. Thank you for the consult; we will continue to follow with you. 02/19/17 Prednisone 30mg qd with food. BS's may run higher while on steroid. DC topical steroid and use Aquaphor. Add cetirizine qd for itch. OK to continue Benadryl prn. Following hemoglobin - it is improving. Overall doing well.
[2017-02-19] MEDS: POLYETHYL GLYCOL 3350 17gm PACKET PO SCH (08:50)
[2017-02-19] MEDS: CALCIUM 600 + VIT D 400 TABLET PO SCH ×2 (08:50→21:35)
[2017-02-19] MEDS: TELMISARTAN 80 MG TABLET PO SCH ×2 (08:51→11:54)
[2017-02-19] MEDS: CALCITONIN NASAL SPRAY 3.7ml NS SCH (08:54)
[2017-02-19] MEDS ORDERED: PredniSONE 10 MG TABLET PO ONE (09:00)
[2017-02-19] MEDS: CETIRIZINE 10 MG TABLET PO SCH (09:03)
[2017-02-19] MEDS: AQUAPHOR TOPICAL OINTMENT 52.5 G TUBE TP SCH ×2 (10:14→21:30)
--- NOTE | 2017-02-19 10:49 | IRU Progress Note ---
- Subjective/Serverity of Illness Dr. Gan states that his pain in the right groin is doing better with ambulation today. He feels as though he is nearing the time that he can go home safely. His rash has spread a bit into the buttocks and around the anterior abdomen. Hospitalist service switched him to topical triamcinolone then now on oral prednisone and topical Aquaphor. Denies any other symptoms of worsening shortness of breath, chest pain etc. Bowels are moving. Exam Vital Signs: Temperature 98.0 F 02/19/17 07:33 Pulse Rate 71 02/19/17 07:33 Respiratory Rate 18 02/19/17 07:33 Blood Pressure 119/65 02/19/17 07:33 Pulse Oximetry 98 02/19/17 07:33 Height/Weight/BMI: Height 1.8 m Weight 79 kg Body Mass Index 24.7 Comments: The patient is awake, alert and oriented and in no acute distress. Pupils are equal. The neck is supple. Chest: Clear to auscultation bilaterally. Cor: RR with no gallop, click nor murmur Abd: soft with normo-active bowel sounds. There are no masses, no tenderness and no guarding. Extremities: No edema is noted. Skin: papular red rash to back, buttocks and ant abd. IRU A/P (1) Fall Qualifiers: Encounter type: initial encounter Qualified Code(s): W19.XXXA - Unspecified fall, initial encounter Current visit: No Status: Acute (2) Fracture of pubic ramus Qualifiers: Encounter type: initial encounter Fracture type: closed Laterality: right Qualified Code(s): S32.591A - Other specified fracture of right pubis, initial encounter for closed fracture Current visit: No Status: Acute Pain is improved and he is progressing with therapy. (3) Hematuria Qualifiers: Hematuria type: gross Qualified Code(s): R31.0 - Gross hematuria Current visit: Yes Status: Acute No further reports of gross hematuria. Remains on Lovenox for DVT prevention. (4) Closed fracture of single pubic ramus of pelvis Qualifiers: Encounter type: initial encounter Laterality: right Qualified Code(s): S32.591A - Other specified fracture of right pubis, initial encounter for closed fracture Current visit: No Status: Acute (5) Acute blood loss anemia Current visit: Yes Status: Acute (6) Multiple contusions Current visit: No Status: Acute (7) Hypertension Qualifiers: Hypertension type: essential hypertension Qualified Code(s): I10 - Essential (primary) hypertension Current visit: No Status: Chronic (8) Diabetes mellitus Qualifiers: Diabetes mellitus type: type 2 Diabetes mellitus complication status: without complication Diabetes mellitus termite exterminator insulin use: without termite exterminator use Qualified Code(s): E11.9 - Type 2 diabetes mellitus without complications Current visit: No Status: Chronic His blood sugars are looking good. He is on once weekly Bydureon. (9) Gait instability Current visit: Yes Status: Acute (10) Constipation by delayed colonic transit Current visit: Yes Status: Resolved (11) Papular eruption Current visit: Yes Status: Acute Hospitalists have added oral prednisone and topical Aquaphor. DVT Prophylaxis: SCD's Resuscitation Status: Full Code - Course Hospital Course: Eduardo Monge MD: 02/16/17 11:06 No further gross hematuria is noted. Vital signs reveal some elevated blood pressure likely related to his pain. He does have some dyspnea with activity with transient drop in saturations. He is on Lovenox for DVT/PE prevention. He states his dyspnea is chronic. He is constipated and we will add on MiraLAX. 02/17/17 10:48 He denies any further gross hematuria. He is improving with therapy. Remains on Lovenox. No change in his dyspnea. He had a bowel movement today. 02/18/17 10:31 Has a new rash involving his back. Careful review of medications indicates no new medications. We'll add on Benadryl and topical hydrocortisone. Blood sugars and blood pressures appear to be stable. Has increased pain in right groin but is progressing with therapy. 02/19/17 10:49 Rash has progressed. Now on oral prednisone and topical Aquaphor. Improve regarding pain and self-care ability. - Interventions to Obtain Goals PT Treatment Plan: Functional Activities, Gait Training, Therapeutic Exercise OT Treatment Plan: ADL (Basic Care), Balance Training, IADL, Pt./Family Education, Ther. Exercise for ADL Goals Progress/Modifications: Time spent with patient and on floor reviewing data and documentin min Barriers to dismissal: Pain, endurance, balance Medical decision-making: Reviewed his rash. No new medications are noted. Does have my card is increased to his normal home dose. Apparently we are using the same detergent for linens that he does at home. Question whether this might be related to soaps etc. He is now on oral prednisone and tolerating well. Continue to monitor.
--- NOTE | 2017-02-19 11:34 | Progress Note ---
Progress Note: Please see previous note the same date. After I initially evaluated him, he was working with therapy. He had walked quite a distance with a front-wheeled walker. He had then rested briefly and then tried climbing stairs with the therapist. He became lightheaded at that point. Did not have any chest pain, palpitations or shortness of breath. His blood pressure was measured at around 80 or so. He was helped down and I evaluated him. He is now back in his room and feels fine. He had no collateral symptoms of chest pain or palpitations etc. We will reduce his Micardis to 40 mg daily and I discussed with Allie with the hospitalist service in this regard.
--- NOTE | 2017-02-19 14:13 | IRU Team Meeting ---
IRU Team Meeting - Nursing Bladder Management Level of Assist: Stand By Assist/Supervision Bladder Frequency of Accidents: No accidents Bowel Frequency of Accidents: No accidents Vital Signs: Vital Signs - 24 hr 02/18/17 16:00 02/18/17 21:14 02/19/17 07:33 Temperature 97.8 F 97.9 F 98.0 F Pulse Rate 74 91 71 Respiratory Rate 18 22 18 Blood Pressure 122/65 125/58 119/65 Pulse Oximetry 97 97 98 Current Medications: Acetaminophen (Tylenol) 325 - 650 mg PO Q5H PRN PRN Reason: Discomfort Last Admin: 02/17/17 10:21 Dose: 650 mg Hydrocodone Bitart/Acetaminophen ([place] 5/325) 1 tab PO Q4H PRN PRN Reason: Pain Last Admin: 02/19/17 10:14 Dose: 1 tab Bisacodyl (Dulcolax) 10 mg RECTALLY DAILY PRN PRN Reason: Constipation Calcitonin [place] (Miacalcin [place]) 1 spray NS DAILY [facility] Last Admin: 02/19/17 08:54 Dose: 1 spray Calcium/Vitamin D (Caltrate + D) 1 tab PO BID [facility] Last Admin: 02/19/17 08:50 Dose: 1 tab Cetirizine HCl (Zyrtec) 10 mg PO DAILY [facility] Last Admin: 02/19/17 09:03 Dose: 10 mg Diphenhydramine HCl (Benadryl) 25 mg PO Q6HR PRN PRN Reason: Itching Diphenhydramine HCl (Benadryl) 25 mg PO HS PRN PRN Reason: Itching Last Admin: 02/18/17 22:45 Dose: 25 mg Emollient Ointment (Aquaphor) 1 applic TP BID [facility] Last Admin: 02/19/17 10:14 Dose: 1 applic Emollient Ointment (Aquaphor) 1 applic TP PRN PRN Exenatide (Bydureon) 2 mg SQ Sa [facility] Last Admin: 02/14/17 10:13 Dose: 2 mg Latanoprost (Xalatan) 1 drops EACH EYE HS [facility] Last Admin: 02/18/17 20:34 Dose: 1 drops Magnesium Hydroxide (Mom) 30 ml PO DAILY PRN PRN Reason: Constipation Polyethylene Glycol (Miralax) 17 gm PO DAILY [facility] Last Admin: 02/19/17 08:50 Dose: 17 gm Prednisone (Deltasone) 30 mg PO WB [facility] Senna/Docusate Sodium (Senna Plus Tablet) 1 tab PO BID PRN PRN Reason: Constipation Telmisartan (Micardis) 40 mg PO DAILY [facility] Last Admin: 02/19/17 11:54 Dose: Not Given Current Medical Issues: Pain from pelvic fracture, hypertension with occasional low blood pressures, diabetes mellitus type 2 not on insulin Comments: I certify that I personally led the interdisciplinary team meeting and agree with comments, barriers and goals indicated. Team meeting was held in the patient's room with the patient and the following family members present: patient's , patient's son Dr. Gan had a lightheaded spell today with blood pressures dropping. This was transient. Had received his pain medication about 45 minutes prior and had been walking quite some time. This resolved without incident and he did not actually have syncope. Denies chest pain and denies shortness of breath. Has been having pain in the right groin from his pelvic fracture and is on hydrocodone 5 mg every 4 hours as needed. Bowels are sluggish with less stool a couple of days ago. Able to pass his urine okay. Has developed a diffuse red rash starting on his back now into his buttocks and abdomen. He is on prednisone in this regard as well as topical Aquaphor. Itching is improved. 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 He is doing well and should be safe to return home. - Occupational Therapy Eating Ability: Independent Grooming Ability: Modified Independent Bathing Ability: Modified Independent Upper Body Dressing Ability: Independent Lower Body Dressing Ability: Modified Independent Tub Transfer Assist: Contact Guard Assistance Toileting Assist: Modified Independent Toilet Transfer Assist: Modified Independent Comments: Has worked hard with occupational therapy. He is using a long handled shoe horn and a transportation inspector and sock aid. Has progressed well with occupational therapy goals. He will continue to work with OT and PT through today and tomorrow and then anticipate going home tomorrow. - Goals Physical Therapy Goals: 02/19/17 Goals: 1.)Discharge Planning Occupational Therapy Goals: 02/19 Goals: 1.) Simple meal prep w/ mod I. 2.) Increase R shoulder AROM to 100 degrees. - Barriers to Discharge Barriers to Attaining Goals: Endurance, Pain Control - Care Plan Anticipated Length of Stay (days): 1 Anticipated DC Destination: Home, Self Care I have led this team conference and agree with the plan.
[2017-02-19 20:36] VITALS: RESP 24
[2017-02-19] MEDS: EYE EACH EYE SCH (21:34)
[2017-02-19] MEDS: LATANOPROST 0.005% EACH EYE SCH (21:34)
[2017-02-19] MEDS: DiphenhydrAMINE 25 MG CAPSULE PO PRN (21:48)
[2017-02-20] MEDS: HYDROCODONE/APAP 5mg/325mg TABLET PO PRN ×2 (06:20→10:36)
[2017-02-20] MEDS: AQUAPHOR TOPICAL OINTMENT 52.5 G TUBE TP SCH ×2 (07:54→12:18)
[2017-02-20] MEDS ORDERED: PredniSONE 10 MG TABLET PO SCH (08:27)
[2017-02-20] MEDS: POLYETHYL GLYCOL 3350 17gm PACKET PO SCH (08:49)
[2017-02-20] MEDS: CALCIUM 600 + VIT D 400 TABLET PO SCH (08:49)
[2017-02-20] MEDS: CETIRIZINE 10 MG TABLET PO SCH (08:50)
[2017-02-20] MEDS: TELMISARTAN 80 MG TABLET PO SCH (08:50)
[2017-02-20] MEDS: CALCITONIN NASAL SPRAY 3.7ml NS SCH (08:51)
[2017-02-20 10:58] VITALS: BP 144/71; PULSE 64; TEMP 98.1; O2SAT 93
--- NOTE | 2017-02-23 14:43 | Discharge Summary ---
Discharge Information Date of admission: 02/13/17 17:00 Anticipated date of discharge: 02/20/17 Attending Physician: Eduardo Monge MD Primary care physician: Darwin Radford II, MD Consults: 02/13/17 17:21 Case Management Consult [CONS] Routine Reason For Exam: 02/13/17 17:33 Physician Consult [CONS] Routine Consulting Provider: Liu Russo Reason For Exam: Medical management Ordering Provider has Notified Cake Winder: Yes - Discharge Diagnosis (1) Fall Status: Acute (2) Fracture of pubic ramus Status: Acute (3) Hematuria Status: Acute (4) Closed fracture of single pubic ramus of pelvis Status: Acute (5) Acute blood loss anemia Status: Acute (6) Multiple contusions Status: Acute (7) Hypertension Status: Chronic (8) Diabetes mellitus Status: Chronic (9) Gait instability Status: Acute (10) Papular eruption Status: Acute 1. Fall 2. Multiple trauma/fractures as follows: A. Acute fracture of right pubic rami B. Acute fracture of right sacrum C. Acute Fracture of right seventh rib 3. Acute blood loss anemia 4. Hematuria 5. Benign essential hypertension 6. Diabetes mellitus type 2, controlled, without fdc use of insulin 7. 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 He was walking in a dimly lit area and fell. He was brought to [facility]. He was noted to have an acute fracture of his right pubic rami, right sacral area and right seventh rib. He was admitted to the acute care side for pain relief and stabilization. He was also noted to have acute blood loss anemia. The patient has history of benign essential hypertension. Also has a history of diabetes mellitus type 2 currently on Bydureon. He checks his sugars at home and they've been running better recently, prior to the fall. Because of these multiple medical problems (acute blood loss anemia, multiple fractures, need for pain management, hypertension and diabetes) the patient was felt to be a good candidate for inpatient rehabilitation in order to return him to his home as rapidly as possible and help in decreasing his risk for additional falls. Hospital Course This is a general summary of the patient's hospital course. For more details refer to the complete medical record. Dr. Gan was admitted to the acute inpatient rehabilitation unit on 02/13/2017 for an intensive individualized program of occupational therapy and physical therapy as well as 24 hour rehabilitation nursing management and monitoring to check his blood sugars and blood pressures and reduce his risk of falling. He also required medical supervision for these multiple medical problems. His pain management was primarily provided by hydrocodone 5 mg. He tolerated this well. He continued to have discomfort primarily with ambulating which result in some right groin pain likely secondary to the known right pubic rami fractures. He was seen by occupational therapy. He was able to eat independently at the beginning of therapy and at the conclusion. Grooming was with standby assistance initially and modified independent subsequently. Bathing ability was initially minimal assistance and upon dismissal modified independent. Upper body dressing with standby assistance initially and independent at the time of dismissal. Lower body dressing was contact-guard assistance initially and modified independent subsequently. Toileting assistance was contact-guard assistance initially and modified independent at the time of dismissal. Toilet transfers were initially contact-guard assistance and ultimately modified independent functioning. Bed/chair/wheelchair functioning was contact-guard initially and ultimately modified independent. Dr. Gan worked diligently also with physical therapy. Bed/chair/wheelchair transfers were initially with minimal assistance and ultimately with modified independent functioning. Toilet assistance was modified independent upon admission and dismissal. He was able to puff to performed toilet transfer assistance with modified independent level. Car transfers were initially unsafe and ultimately were able to be performed at modified independent level. Ambulation ability was initially maximum assistance and ultimately modified independent. He was able to ambulate 40 feet initially with a front-wheeled walker at maximal assistance and subsequently was able to ambulate over 170 feet with a front-wheeled walker with modified independent level. He could climb 6 steps initially with maximal assistance and ultimately 12 stairs with modified independent level. It is noted that the patient did have an episode of hypotension and lightheadedness. For this reason his Micardis was reduced from 80 down to 40 mg daily. In addition, the patient developed a papular red rash initially on his back and subsequently on his abdomen and trunk. Etiology was not clear as there are no new medications administered. He was treated with topical Aquaphor and oral Benadryl plus prednisone. He was sent home on prednisone 30 mg daily. Patient is dismissed to his home on 02/20/2017. He was given a prescription for hydrocodone with acetaminophen 5/325 #30 tablets with no refills. His blood sugars were well controlled at the time dismissal. He will follow-up with Dr. Salas. Hospital course: 02/14/17 11:22 Hema is doing well. Continue PT/OT, strengthening per therapy team. Resume home eye drops per pt. request. Pt. reports daily BG checks at home- will decrease to daily. Home Exenatide weekly on Thursday- family providing home medication. Monitor due to ABLA. Suspect hematuria due to acute pelvic trauma. Repeat CBC and UA in AM. May need to repeat pelvic imaging if hematuria does not resolve. Add I.S. due to rib fractures. Continue pain control. Monitor for constipation. Resume home micardis and monitor BP. Chart is reviewed during this visit. Thank you for the consult; we will continue to follow with you. 02/19/17 Prednisone 30mg qd with food. BS's may run higher while on steroid. DC topical steroid and use Aquaphor. Add cetirizine qd for itch. OK to continue Benadryl prn. Following hemoglobin - it is improving. Overall doing well. Time spent with patient: 25 - 35 minutes Discharge Plan - Med Rec/Dispo Referrals/Follow Up: Darwin Radford II, MD [Family Provider] - (Dr. Garret Radford on 02/25/17 at 1:45 pm for Hosp. follow-up. [address] [place] [address]) Carlos Instructions: Fall Prevention for Older Adults (GEN) Prescriptions: New DiphenhydrAMINE [Benadryl] 25 mg PO HS PRN capsule PRN Reason: Itching Exenatide Weekly Inj [Bydureon] 2 mg SQ Sa vial Latanoprost [Xalatan] 1 drops EACH EYE HS bottle PEG 3350 17gm PACKET [Miralax] 17 gm PO DAILY packet Telmisartan [Micardis] 40 mg PO DAILY tablet Calcitonin Nasal [place] [Miacalcin [place]] 1 spray NS DAILY bottle Calcium 600 + D [Caltrate + D] 1 tab PO BID tablet PredniSONE [Deltasone] 3 tab PO WB #9 tab Continue Senna + Docusate [Senna Plus Tablet] 1 tab PO BID PRN tablet PRN Reason: Constipation Exenatide Microspheres [Bydureon Pen] 2 mg SQ Discontinued Milk of Magnesia [Mom] 30 ml PO DAILY PRN udc PRN Reason: Constipation Telmisartan [Micardis] 20 mg PO No Action Acetaminophen [Tylenol] 325 - 650 mg PO Q5H PRN tablet PRN Reason: Discomfort Hydrocodone/APAP 5/325 [[place] 5/325] 1 tab PO Q6H PRN tablet PRN Reason: Pain - Disposition [facility] - Dismissal Complete Discharge Instructions are:: Complete
== END 2017-02-20 14:10 | disposition home health service (06) | DRG 560 ==
PROVIDERS: ADMIT Internal Medicine; ATTEND Internal Medicine